=== PATIENT | male | born 1930 | race Caucasian/White ===

== ENCOUNTER 2021-02-21 18:14 | Inpatient (IN) | payer OTHER ==
--- NOTE | 2021-02-21 19:34 | RAD REPORT ---
EXAM DESCRIPTION: RAD - Chest Single View - 02/21/2021 7:17 pm CLINICAL HISTORY: hypotension Chest pain. COMPARISON: Chest Single View dated 01/27/2019; Chest Single View dated 01/26/2019; Chest Single View dated 01/23/2019No comparisons FINDINGS: Portable technique limits examination quality. Elevation of the right hemidiaphragm is seen without clear etiology seen. Mild interstitial pulmonary edema is likely present. The heart is mildly prominent size. Sternotomy wires present.
[2021-02-21] MEDS ORDERED: NA CHLORIDE 0.9% 1,000 ML ONE (19:59)
--- NOTE | 2021-02-21 20:05 | EDPHYS ---
Physician Documentation [facility] Name: Dudley Simmons Age: 89 yrs Sex: Male : 1930 Arrival Date: 02/21/2021 Time: 18:15 Bed 25 Private MD: KRYSTIAN Physician Ashwin Villalobos HPI: 02/21 18:30 This 89 yrs old Male presents to ER via EMS with complaints of syncope, rn hypotension. 18:30 The patient has experienced syncope. Onset: The symptoms/episode began/occurred just rn prior to arrival. Duration: This was a single episode. Context: the episode(s) was witnessed, by the half-way staff, occurred at a half-way or assisted living facility, occurred while the patient was sitting, Just prior to the episode the patient experienced no apparent symptoms. Associated injury: The patient did not suffer any apparent associated injury. Associated signs and symptoms: Pertinent positives: dizziness, lightheadedness, weakness, Pertinent negatives: abdominal pain, chest pain, headache. Current symptoms:. It is unknown whether or not the patient has had similar symptoms in the past. The patient has not recently seen a physician. EMS brought patient from half-way after syncopal episode. Was eating and slumped over in his chair. No preceding symptoms. Patient reports thinks has been eating and drinking okay but is very thirsty. Denies any current headache focal neurological problem, chest pain, shortness of breath, cough, abdominal pain, vomiting or diarrhea. States only time he has loose stools after eating breakfast sausage. Reports feels generalized weakness and lightheadedness.. Historical: - Allergies: 18:28 No Known Allergies; jl7 - Home Meds: 18:28 atorvastatin 80 mg oral tab 1 tab once daily [Active]; aspirin 81 mg Oral TbEC 1 tab jl7 once daily [Active]; carvedilol 25 mg oral tab 1 tab 2 times per day [Active]; ezetimibe 10 mg oral tab 1 tab once daily [Active]; furosemide 40 mg Oral tab 1 tab once daily [Active]; Zanaflex 4 mg Oral cap [Active]; - PMHx: 18:28 Hypertensive disorder; Atrial fibrillation; high cholesterol; CHF; jl7 - Immunization history:: Adult Immunizations up to date, Client reports receiving the 2nd dose of the Covid vaccine. - Social history:: Smoking status: Patient denies any tobacco usage or history of. - Family history:: not pertinent. - Hospitalizations: : No recent hospitalization is reported. ROS: 18:30 Constitutional: Negative for fever, chills, and weight loss, Eyes: Negative for injury, rn pain, redness, and discharge, Neck: Negative for injury, pain, and swelling, Cardiovascular: Negative for chest pain, palpitations, and edema, Respiratory: Negative for shortness of breath, cough, wheezing, and pleuritic chest pain, Abdomen/GI: Negative for abdominal pain, nausea, vomiting, and constipation, Back: Negative for injury and pain, : Negative for injury, bleeding, discharge, and swelling, MS/Extremity: Negative for injury and deformity, Skin: Negative for injury, rash, and discoloration, Neuro: Negative for headache, numbness, tingling, and seizure. 18:30 All other systems are negative. Exam: 18:30 Constitutional: This is a well developed, well nourished patient who is awake, alert, rn and in no acute distress. Head/Face: Normocephalic, atraumatic. Eyes: Periorbital areas with no swelling, redness, or edema. ENT: Dry mucous membranes Cardiovascular: Irregularly irregular rhythm. No pulse deficits. Regular rate Respiratory: Speaking full sentences, unlabored. No increased work of breathing, no retractions or nasal flaring. Abdomen/GI: Soft, non-tender Skin: Warm, dry MS/ Extremity: Pulses equal, no cyanosis Neuro: Awake and alert, GCS 15, oriented to person, place, time, and situation. Cranial nerves II-XII grossly intact. Motor strength 4/5 in all extremities. Sensory grossly intact. 18:36 ECG was reviewed by the Attending Physician. rn Vital Signs: 18:24 BP 66 / 44; Pulse 74; Resp 15; Temp 98.1; Pulse Ox 97% ; Pain 0/10; jl7 20:45 BP 102 / 64; Pulse 67; Resp 19; Temp 97.6; Pulse Ox 96% ; Weight 78.93 kg; Height 5 ft. wr 6 in. (167.64 cm); Pain 0/10; 16 04:00 BP 153 / 89; Pulse 94; Resp 21; Temp 98; Pulse Ox 96% ; wr 04:12 BP 156 / 74; Pulse 83; Resp 14; Temp 97.9; Pulse Ox 96% ; wr 09:08 BP 145 / 83 Sitting; Pulse 95; Resp 16; Pulse Ox 95% on R/A; 5 09:10 BP 145 / 97 Standing; Pulse 107; Resp 20; Pulse Ox 97% on R/A; 5 09:12 BP 140 / 91 Supine; Pulse 94; Resp 20; Pulse Ox 96% on R/A; 5 02/21 20:45 Body Mass Index 28.08 (78.93 kg, 167.64 cm) wr MDM: 02/21 18:22 Patient medically screened. rn 18:56 Transition of care: After a detail discussion of the patient's case, care is rn transferred to Ashwin Villalobos MD. 19:54 Differential Diagnosis: aortic aneurysm, cardiac arrhythmia, GI bleed, seizure, sepsis, brice vasovagal episode. Data reviewed: vital signs, nurses notes, lab test result(s), EKG, radiologic studies, CT scan, plain films. Data interpreted: athletic monitor: rate is 74 beats/min, rhythm is regular, Pulse oximetry: on room air is 97 %. Test interpretation: by ED physician or midlevel provider: ECG, plain radiologic studies. Counseling: I had a detailed discussion with the patient and/or guardian regarding: the historical points, exam findings, and any diagnostic results supporting the discharge/admit diagnosis, lab results, radiology results, the need for further work-up and treatment in the hospital. 02/21 18:29 Order name: CBC with Diff 02/21 18:29 Order name: Basic Metabolic Panel 02/21 18:29 Order name: Protime (+inr) 02/21 18:29 Order name: Ptt, Activated; Complete Time: 21:09 02/21 18:29 Order name: Urine Culture 02/21 18:29 Order name: Urine Microscopic Only 02/21 18:29 Order name: Blood Culture Adult (2) 02/21 18:29 Order name: Procalcitonin; Complete Time: 21:45 02/21 18:29 Order name: Lactate; Complete Time: 21:09 02/21 18:29 Order name: COVID-19 : Document "Date of Symptom Onset" if Symptomatic. 02/21 18:29 Order name: CBC with Automated Diff; Complete Time: 20:58 EDMS 02/21 18:29 Order name: Basic Metabolic Panel; Complete Time: 21:11 [facility] 02/21 18:29 Order name: Protime (+INR); Complete Time: 21:09 [facility] 02/21 18:48 Order name: BNP la1 02/21 18:29 Order name: XRAY Chest (1 view); Complete Time: 19:36 02/21 20:40 Order name: Liver (Hepatic) Function; Complete Time: 21:11 [facility] 02/21 20:40 Order name: Troponin I; Complete Time: 21:11 [facility] 02/21 20:41 Order name: NT PRO-BNP; Complete Time: 21:11 [facility] 02/21 23:44 Order name: SARS-COV-2 RT PCR EDWA 02/22 05:16 Order name: CBC with Automated Diff [facility] 02/22 05:37 Order name: Comprehensive Metabolic Panel [facility] 02/22 05:37 Order name: Troponin I [facility] 02/22 05:37 Order name: Lipid Profile [facility] 02/22 05:37 Order name: T4 Free [facility] 02/22 05:37 Order name: Magnesium [facility] 02/22 05:37 Order name: Thyroid Stimulating Hormone [facility] 02/22 13:18 Order name: Troponin I [facility] 02/21 18:29 Order name: IV Start; Complete Time: 20:38 02/21 18:29 Order name: Urine Dipstick-Ancillary (obtain specimen) 02/21 18:29 Order name: EKG; Complete Time: 18:30 02/21 18:29 Order name: EKG - Nurse/Tech; Complete Time: 18:38 02/21 19:54 Order name: CT Chest Abdomen Pelvis W/O Contrast; Complete Time: 21:01 [facility] 02/21 19:55 Order name: Head Brain Wo Cont CT; Complete Time: 20:59 bb EC:36 Rate is 75 beats/min. Rhythm is irregularly irregular. Right axis deviation noted. QRS rn is positive in lead aVF and negative in lead I. QRS interval is normal. QT interval is prolonged at 466 msec. No Q waves. T waves are Normal. No ST changes noted. Clinical impression: Atrial Fibrillation. Interpreted by me. Reviewed by me. Administered Medications: 20:00 Drug: NS 0.9% 1000 ml Route: IV; Rate: 1000 ml; Site: left forearm; wr 21:01 Drug: Pepcid (famotidine) 20 mg Route: IVP; Site: left forearm; 02/22 05:12 Drug: Tylenol 1000 mg Route: PO; wr Disposition Summary: 02/21/21 20:05 Hospitalization Ordered Hospitalization Status: Observation brice Provider: Camilo Reyes cha Condition: Fair brice Problem: new brice Symptoms: have improved brice Bed/Room Type: Standard brice Location: [facility] ER HOLD(02/22/21 01:16) tl1 Room Assignment: ERHOLD-(02/22/21 01:16) tl1 Diagnosis - Syncope Near brice - Hypotension, unspecified brice - Chronic atrial fibrillation brice - Unspecified kidney failure - insufficency brice Forms: - Medication Reconciliation Form brice - SBAR form brice Signatures: Dispatcher [employer] EDMS Ashwin Villalobos MD MD cha Nieto, Roman, MD MD rn Attema, Lee, RICK-C FIRE EXTINGUISHER REPAIRER INSPECTOR-Cla1 Rufina Girard RN RN tl1 Alan Carroll RN RN jl7 Roc Munguia Corrections: (The following items were deleted from the chart) 02/21 20:39 18:48 NT PRO-BNP ordered. EDWA EDMS 20:39 18:48 TROPONIN (EMERG DEPT USE ONLY)+C.LAB.BRZ ordered. EDWA EDMS 20:39 18:48 HEPATIC FUNCTION+C.LAB.BRZ ordered. EDWA EDWA 02/22 01:16 02/21 20:05 Telemetry/MedSurg (observation) [facility] 02/22 01:16 02/21 20:05 [facility]
--- NOTE | 2021-02-21 20:05 | ER ---
Nurse's Notes [facility] Name: Dudley Simmons Age: 89 yrs Sex: Male : 1930 Arrival Date: 02/21/2021 Time: 18:15 Bed 25 Private MD: Diagnosis: Syncope Near;Hypotension, unspecified;Chronic atrial fibrillation;Unspecified kidney failure-insufficency Presentation: 02/21 18:24 Chief complaint: EMS states: Sitting at the dinner table and had a syncopal episode, jl7 took him to his room and his initial BP was 100 systolic, stood him up and his BP was 66/44 and has not fully recovered. Pt A\T\Ox4. Coronavirus screen: Vaccine status: Patient reports receiving the 2nd dose of the covid vaccine. Belly At this time, the client does not indicate any symptoms associated with coronavirus-19. Ebola Screen: No symptoms or risks identified at this time. Initial Sepsis Screen: Does the patient meet any 2 criteria? No. Patient's initial sepsis screen is negative. Does the patient have a suspected source of infection? No. Patient's initial sepsis screen is negative. Risk Assessment: Do you want to hurt yourself or someone else? Patient reports no desire to harm self or others. Onset of symptoms was February 21, 2021. Care prior to arrival: Medication(s) given: Normal saline infusion, 1000 mL, IV initiated. 20 GA, in the left forearm, Glucose check: 116. 18:24 Method Of Arrival: EMS: [facility] 18:24 Acuity: JED 2 [facility] 18:24 Transition of care: Dimitir Smith [facility] Triage Assessment: 20:46 General: Appears in no apparent distress. Behavior is calm, cooperative. Pain: Denies wr pain. Historical: - Allergies: 18:28 No Known Allergies; jl7 - Home Meds: 18:28 atorvastatin 80 mg oral tab 1 tab once daily [Active]; aspirin 81 mg Oral TbEC 1 tab jl7 once daily [Active]; carvedilol 25 mg oral tab 1 tab 2 times per day [Active]; ezetimibe 10 mg oral tab 1 tab once daily [Active]; furosemide 40 mg Oral tab 1 tab once daily [Active]; Zanaflex 4 mg Oral cap [Active]; - PMHx: 18:28 Hypertensive disorder; Atrial fibrillation; high cholesterol; CHF; jl7 - Immunization history:: Adult Immunizations up to date, Client reports receiving the 2nd dose of the Covid vaccine. - Social history:: Smoking status: Patient denies any tobacco usage or history of. - Family history:: not pertinent. - Hospitalizations: : No recent hospitalization is reported. Screenin:48 Abuse screen: Denies. Nutritional screening: No deficits noted. wr 20:50 Tuberculosis screening: No symptoms or risk factors identified. Tuberculosis screening: wr No symptoms or risk factors identified. 20:50 Fall Risk None identified. Fall Risk Gait- Weak (10 pts.). wr Vital Signs: 18:24 BP 66 / 44; Pulse 74; Resp 15; Temp 98.1; Pulse Ox 97% ; Pain 0/10; jl7 20:45 BP 102 / 64; Pulse 67; Resp 19; Temp 97.6; Pulse Ox 96% ; Weight 78.93 kg; Height 5 ft. wr 6 in. (167.64 cm); Pain 0/10; 02/22 04:00 BP 153 / 89; Pulse 94; Resp 21; Temp 98; Pulse Ox 96% ; wr 04:12 BP 156 / 74; Pulse 83; Resp 14; Temp 97.9; Pulse Ox 96% ; wr 09:08 BP 145 / 83 Sitting; Pulse 95; Resp 16; Pulse Ox 95% on R/A; 5 09:10 BP 145 / 97 Standing; Pulse 107; Resp 20; Pulse Ox 97% on R/A; 5 09:12 BP 140 / 91 Supine; Pulse 94; Resp 20; Pulse Ox 96% on R/A; 5 09/15 20:45 Body Mass Index 28.08 (78.93 kg, 167.64 cm) wr ED Course: 02/21 18:15 Patient arrived in ED. ds1 18:22 Guillermo Armstrong MD is Attending Physician. rn 18:28 Triage completed. jl7 18:28 Arm band placed on right wrist. jl7 19:13 Attending Physician role handed off by Guillermo Armstrong MD brice 19:13 Ashwin Villalobos MD is Attending Physician. brice 19:17 XRAY Chest (1 view) In Process Unspecified. EDMS 20:04 Camilo Reyes DO is Hospitalizing Provider. brice 20:43 CT Chest Abdomen Pelvis W/O Contrast In Process Unspecified. EDMS 20:43 Head Brain Wo Cont CT In Process Unspecified. EDMS 20:51 Inserted saline lock:. 02/22 04:10 Patient has correct armband on for positive identification. 08:18 Margie Myrick is Primary Nurse. formerly [facility] 09: Warm blanket given. Pillow given. bus driver/monitor on. Pulse ox on. NIBP on. mh5 Administered Medications: 02/21 20:00 Drug: NS 0.9% 1000 ml Route: IV; Rate: 1000 ml; Site: left forearm; 21:01 Drug: Pepcid (famotidine) 20 mg Route: IVP; Site: left forearm; 02/22 05:12 Drug: Tylenol 1000 mg Route: PO; Outcome: 02/21 20:05 Decision to Hospitalize by Provider. [facility] 02/22 04:10 Condition: stable 02/23 10:24 Patient left the ED. iw Signatures: Dispatcher [employer] Ashwin Lloyd MD MD cha Sanford, Demi ds1 Stella North, RN RN iw Guillermo Armstrong MD MD rn Martinez, Maria 5 Alan Carroll RN RN Margie Calixto formerly [facility] Roc Munguia
[2021-02-21 20:53] LABS: Absolute Lymphocytes (CBC) 1.9 K/uL (0.7-4.9); Basophils % 0.8 % (0-1.3); Lymphocytes % 26.6 % (15.3-44.8); MPV 9.5 fL (7.6-11.3); RBC Red Blood Cell Count 3.64 M/uL (4.33-5.43)
--- NOTE | 2021-02-21 20:57 | RAD REPORT ---
EXAM DESCRIPTION: CT - Head Brain Wo Cont - 02/21/2021 8:43 pm CLINICAL HISTORY: SYNCOPE Headache drowsiness COMPARISON: No comparisons TECHNIQUE: All CT scans are performed using dose optimization technique as appropriate and may inclu de automated exposure control or mA/KV adjustment according to patient size. FINDINGS: No intracranial hemorrhage, hydrocephalus or extra-axial fluid collection.Mild brain atrop hy.No areas of brain edema or evidence of midline shift. The paranasal sinuses and mastoids are clear. The calvarium is intact. IMPRESSION: No acute intracranial abnormality.
--- NOTE | 2021-02-21 21:00 | RAD REPORT ---
EXAM DESCRIPTION: CT - Chest Abd Pelvis Wo Con - 02/21/2021 8:43 pm CLINICAL HISTORY: Chest and abdomen pain. Chest pain;Abdominal distention COMPARISON: No comparisons TECHNIQUE: Limited noncontrast study is submitted. All CT scans are performed using dose optimization technique as appropriate and may include automated exposure control or mA/KV adjustment according to patient size. FINDINGS: Atelectasis is seen in the right lung base with elevation of the right hemidiaphragm.No pl eural or pericardial effusion.No intrathoracic adenopathy. The liver, spleen, pancreas, adrenal glands and kidneys are within normal limits. Cholecystectomy cli ps. No bowel obstruction, free air, free fluid or abscess. Normal appendix. Moderate sigmoid diverticulos is coli without diverticulitis. No pathologic lymphadenopathy in the abdomen or pelvis. Fat containin g inguinal hernias bilaterally, larger on the left. Significant degenerative change right shoulder. Mild lumbar degenerative changes. IMPRESSION: No acute abnormality is detected.
[2021-02-21 21:02] LABS: Protime INR 1.07
[2021-02-21] MEDS ORDERED: FAMOTIDINE 20 MG/2 ML VIAL IV ONE (21:07)
[2021-02-21 21:11] LABS: Albumin 3.9 g/dL (3.4-5.0); Bilirubin Direct 0.2 mg/dL (0-0.2); Bilirubin Total 0.5 mg/dL (0.2-1.0); Protein, Total 7.2 g/dL (6.4-8.2); Troponin I 0.03 ng/mL (0.0-0.045)
--- NOTE | 2021-02-21 21:47 | P.HP ---
Certification for Inpatient Patient admitted to: Observation With expected LOS: <2 Midnights Patient will require the following post-hospital care: None Practitioner: I am a practitioner with admitting privileges, knowledge of patient current condition, hospital course, and medical plan of care. Services: Services provided to patient in accordance with Admission requirements found in Title 42 Section 412.3 of the Code of Federal Regulations Patient History Date of Service: 02/21/21 Primary Care Provider: [facility] doctor Reason for admission: Orthostatic hypotension History of Present Illness: 89-year-old male with history of atrial fibrillation, hypertension, hyperlipidemia, CAD status post CABG, CHF presents emergency department for hypotension, orthostatic. Patient states that [facility], reports that he was eating dinner this evening and after he was done walked in his room and was not feeling well, he reports that the staff came to his room and told him that he had passed out during dinner. Patient reports that he remembers all of dinner and did not lose consciousness or pass out but that his blood pressure had been running low. Patient was transferred by EMS to hospital and he was orthostatic positive. Labs are significant for hemoglobin 11.3 hematocrit 33 creatinine 1.35 GFR 50 glucose 111 BUN [address] head negative for acute findings chest x-ray demonstrated elevated right hemidiaphragm CT chest abdomen pelvis without contrast demonstrated right-sided atelectasis. Blood pressure has improved after fluids, ED provider is to admit under observation for hypotension, renal insufficiency, orthostatic hypotension. - Past Medical/Surgical History -: CHFunknown EF -: Atrial fibrillation unknown anticoagulation -: Hyperlipidemia -: Hypertension -: Hernia repair -: CABG three-vessel 2006 -: Cholecystectomy Psychosocial/ Personal History: Patient is a resident at assisted living facility - Family History Father -: Lung disease - Social History Smoking Status: Former smoker Alcohol use: No CD- Drugs: No Caffeine use: Yes Place of Residence: Home Review of Systems Unremarkable Physical Examination - Physical Exam General: Alert, In no apparent distress HEENT: Atraumatic, PERRLA, Mucous membr. moist/pink, EOMI, Sclerae nonicteric Neck: Supple, 2+ carotid pulse no bruit, No LAD, Without JVD or thyroid abnormality Respiratory: Clear to auscultation bilaterally, Normal air movement Cardiovascular: Regular rate/rhythm, Normal S1 S2 Gastrointestinal: Normal bowel sounds, No tenderness Musculoskeletal: No tenderness Integumentary: No rashes Neurological: Normal gait, Normal speech, Normal strength at 5/5 x4 extr, Normal tone, Normal affect Lymphatics: No axilla or inguinal lymphadenopathy - Studies Laboratory Data (last 24 hrs) 02/21/21 20:15: PT 12.3, INR 1.07, APTT 29.0 02/21/21 20:15: Sodium 142, Potassium 4.0, BUN 27 H, Creatinine 1.35 H, Glucose 111 H, Total Bilirubin 0.5, AST 35, ALT 52, Alkaline Phosphatase 76, Troponin I 0.03 02/21/21 20:15: WBC 7.00, Hgb 11.3 L, Hct 33.0 L, Plt Count 145 L 02/21/21 18:48: Total Bilirubin Cancelled, AST Cancelled, ALT Cancelled, Alkaline Phosphatase Cancelled Assessment and Plan - Plan Assessment: Orthostatic hypotension, renal sufficiency likely secondary to dehydration Chronic CHFunknown EF Atrial fibrillation unknown if on chronic anticoagulation therapy Hypertension Hyperlipidemia Plan: Orthostatic hypotension, renal sufficiency likely secondary to dehydration: Patient received IV fluid bolus in the ER blood pressure has improved, will provide patient IV fluids overnight recheck chemistry and orthostatic vital signs in the morning. Chronic CHFunknown EF: Obtain, verify and resume home medications as appr opriate. Patient reports that he previously used to take a diuretic but has not for a while now, patient does not know his home medications. Atrial fibrillation unknown if on chronic anticoagulation therapy: Patient reports he knows he takes a daily aspirin but is unsure of the home medications including anticoagulation therapy will need to obtain from assisted. Hypertension: Hold blood pressure medication at this time given patient's low blood pressure. Restart as appropriate. Hyperlipidemia: Continue statin therapy. DVT PPX: Lovenox Code status: Full Discharge Plan: Home Plan to discharge in: 24 Hours - Advance Directives Does patient have a Living Will: No Does patient have a Durable POA for Healthcare: No - Code Status/Comfort Care Code Status Assessed: Yes (Full code) Critical Care: No Time Spent Managing Pts Care (In Minutes): 55
[2021-02-22] MEDS ORDERED: ACETAMINOPHEN 500 MG TAB PO PRN (00:57)
[2021-02-22] MEDS ORDERED: ONDANSETRON 4 MG/2 ML VIAL IV PRN (00:57)
[2021-02-22] MEDS: NA CHLORIDE 0.9% 1,000 ML IV SCH ×2 (00:57→13:51)
[2021-02-22 05:07] LABS: Absolute Lymphocytes (CBC) 2.1 K/uL (0.7-4.9); Basophils % 0.9 % (0-1.3); Hematocrit 33.7 % (39.6-49.0); Lymphocytes % 28.6 % (15.3-44.8); MPV 9.1 fL (7.6-11.3); RBC Red Blood Cell Count 3.72 M/uL (4.33-5.43)
[2021-02-22] MEDS ORDERED: ACETAMINOPHEN 500 MG TAB ONE ×2 (05:15→15:25)
[2021-02-22] MEDS ORDERED: NA CHLORIDE 0.9% 1,000 ML ONE ×2 (05:26→18:36)
[2021-02-22 05:27] LABS: Albumin 3.8 g/dL (3.4-5.0); Bilirubin Total 0.7 mg/dL (0.2-1.0); Thyroid Stimulating Hormone 1.31 uIU/mL (0.360-3.740); Troponin I 0.05 ng/mL (0.0-0.045)
[2021-02-22 05:37] LABS: Magnesium 2.1 mg/dL (1.8-2.4); Potassium 3.8 mmol/L (3.5-5.1)
--- NOTE | 2021-02-22 06:29 | P.PN ---
Subjective Date of Service: 02/22/21 Primary Care Provider: custodial doctor Chief Complaint: Orthostatic hypotension Subjective: Improving, Doing well Physical Examination - Studies Laboratory Data (last 24 hrs) 02/21/21 20:15: PT 12.3, INR 1.07, APTT 29.0 02/21/21 20:15: Sodium 142, Potassium 4.0, BUN 27 H, Creatinine 1.35 H, Glucose 111 H, Total Bilirubin 0.5, AST 35, ALT 52, Alkaline Phosphatase 76, Troponin I 0.03 02/21/21 20:15: WBC 7.00, Hgb 11.3 L, Hct 33.0 L, Plt Count 145 L 02/21/21 18:48: Total Bilirubin Cancelled, AST Cancelled, ALT Cancelled, Alkaline Phosphatase Cancelled Assessment & Plan Discharge Plan: [facility] Plan to discharge in: 24 Hours Physician Review Additional Text: COVID: negative CT head: COMPARISON: No comparisons TECHNIQUE: All CT scans are performed using dose optimization technique as appropriate and may include automated exposure control or mA/KV adjustment according to patient size. FINDINGS: No intracranial hemorrhage, hydrocephalus or extra-axial fluid collection.Mild brain atrophy.No areas of brain edema or evidence of midline shift. The paranasal sinuses and mastoids are clear. The calvarium is intact. IMPRESSION: No acute intracranial abnormality. CT Scan: COMPARISON: No comparisons TECHNIQUE: Limited noncontrast study is submitted. All CT scans are performed using dose optimization technique as appropriate and may include automated exposure control or mA/KV adjustment according to patient size. FINDINGS: Atelectasis is seen in the right lung base with elevation of the right hemidiaphragm.No pleural or pericardial effusion.No intrathoracic adenopathy. The liver, spleen, pancreas, adrenal glands and kidneys are within normal limits. Cholecystectomy clips. No bowel obstruction, free air, free fluid or abscess. Normal appendix. Moderate sigmoid diverticulosis coli without diverticulitis. No pathologic lymphadenopathy in the abdomen or pelvis. Fat containing inguinal hernias bilaterally, larger on the left. Significant degenerative change right shoulder. Mild lumbar degenerative changes. IMPRESSION: No acute abnormality is detected. Physical exam: General: Alert, In no apparent distress HEENT: Atraumatic, PERRLA, Mucous membr. moist/pink, EOMI, Sclerae nonicteric Neck: Supple, 2+ carotid pulse no bruit, No LAD, Without JVD or thyroid abno rmality Respiratory: Clear to auscultation bilaterally, Normal air movement Cardiovascular: Regular rate/rhythm, Normal S1 S2 Gastrointestinal: Normal bowel sounds, No tenderness Musculoskeletal: No tenderness Integumentary: No rashes Neurological: Normal gait, Normal speech, Normal strength at 5/5 x4 extr, Normal tone, Normal affect Lymphatics: No axilla or inguinal lymphadenopathy Impression: Orthostatic hypotension, renal sufficiency likely secondary to dehydration Chronic CHFunknown EF Atrial fibrillation unknown if on chronic anticoagulation therapy Hypertension Hyperlipidemia Plan: Orthostatic hypotension, renal sufficiency likely secondary to dehydration: Hydration improved with IV fluids. Continue with hydration. Blood pressures elevated. Need to obtain and restart home medication. Will monitor blood pressure closely. Will check orthostatics. Ambulate with physical therapy. Likely home tomorrow. Chronic CHFunknown EF: Obtain and verify home medication. Atrial fibrillation unknown if on chronic anticoagulation therapy: Obtain and verify home medication. Hypertension: Blood pressure is now elevated. Need to restart home medication. Hyperlipidemia: Continue statin therapy. DVT PPX: Lovenox Code status: Full Advanced care planning: Back to assisted living facility Time Spent Managing Pts Care (In Minutes): 55
[2021-02-22] MEDS ORDERED: ENOXAPARIN 40 MG/0.4 ML SQ SCH (09:00)
[2021-02-22] MEDS ORDERED: ASPIRIN EC 81 MG TAB PO SCH (09:00)
[2021-02-22] MEDS ORDERED: ENOXAPARIN 40 MG/0.4 ML SQ ONE (09:57)
[2021-02-22] MEDS ORDERED: ASPIRIN EC 81 MG TAB PO ONE (09:57)
[2021-02-22] MEDS ORDERED: PNEUMOCOCCAL VACCINE 0.5 ML IMVAC ONE ×2 (11:00→15:22)
[2021-02-22] MEDS ORDERED: carvediloL 6.25 MG TAB ONE (13:54)
[2021-02-22] MEDS: carvediloL 25 MG TAB PO SCH ×2 (14:00→18:00)
[2021-02-22] MEDS ORDERED: HYDRALAZINE HCL 20 MG/ML VIAL ONE (23:40)
[2021-02-22] MEDS ORDERED: HYDRALAZINE HCL 20 MG/ML VIAL IV ONE (23:46)
[2021-02-23] MEDS ORDERED: ACETAMINOPHEN 500 MG TAB ONE (00:58)
[2021-02-23] MEDS: NA CHLORIDE 0.9% 1,000 ML IV SCH (03:37)
[2021-02-23 04:56] VITALS: BP 127/67; TEMP 98.4
[2021-02-23] MEDS: carvediloL 25 MG TAB PO SCH (06:00)
[2021-02-23] MEDS ORDERED: NA CHLORIDE 0.9% 1,000 ML ONE (06:17)
[2021-02-23 06:23] VITALS: BMI 28.3
--- NOTE | 2021-02-23 06:37 | P.DS ---
Admission Date: 02/21/21 Discharge Date: 02/23/21 Primary Care Provider: prison doctor Disposition: ROUTINE DISCHARGE Discharge Condition: GOOD Reason for Admission: Orthostatic hypotension Consultations: none Procedures: COVID: negative CT head: COMPARISON: No comparisons TECHNIQUE: All CT scans are performed using dose optimization technique as appropriate and may include automated exposure control or mA/KV adjustment according to patient size. FINDINGS: No intracranial hemorrhage, hydrocephalus or extra-axial fluid collection.Mild brain atrophy.No areas of brain edema or evidence of midline shift. The paranasal sinuses and mastoids are clear. The calvarium is intact. IMPRESSION: No acute intracranial abnormality. CT Scan: COMPARISON: No comparisons TECHNIQUE: Limited noncontrast study is submitted. All CT scans are performed using dose optimization technique as appropriate and may include automated exposure control or mA/KV adjustment according to patient size. FINDINGS: Atelectasis is seen in the right lung base with elevation of the right hemidiaphragm.No pleural or pericardial effusion.No intrathoracic adenopathy. The liver, spleen, pancreas, adrenal glands and kidneys are within normal limits. Cholecystectomy clips. No bowel obstruction, free air, free fluid or abscess. Normal appendix. Moderate sigmoid diverticulosis coli without diverticulitis. No pathologic lymphadenopathy in the abdomen or pelvis. Fat containing inguinal hernias bilaterally, larger on the left. Significant degenerative change right shoulder. Mild lumbar degenerative changes. IMPRESSION: No acute abnormality is detected. Medical Problem List: Orthostatic hypotension, renal sufficiency likely secondary to dehydration Chronic CHFunknown EF Atrial fibrillation unknown if on chronic anticoagulation therapy Hypertension Hyperlipidemia Brief History of Present Illness: 89-year-old male with history of atrial fibrillation, hypertension, hyperlipidemia, CAD status post CABG, CHF presents emergency department for hypotension, orthostatic. Patient states that [facility] assisted [facility], reports that he was eating dinner this evening and after he was done walked in his room and was not feeling well, he reports that the staff came to his room and told him that he had passed out during dinner. Patient reports that he remembers all of dinner and did not lose consciousness or pass out but that his blood pressure had been running low. Patient was transferred by EMS to hospital and he was orthostatic positive. Labs are significant for hemoglobin 11.3 hematocrit 33 creatinine 1.35 GFR 50 glucose 111 BUN [address] head negative for acute findings chest x-ray demonstrated elevated right hemidiaphragm CT chest abdomen pelvis without contrast demonstrated right-sided atelectasis. Blood pressure improved with IV fluid hydration. Patient was admitted for further evaluation and treatment. Hospital Course: Patient presented with orthostatic hypotension, renal sufficiency likely from dehydration. Patient received IV fluids with improvement. Blood pressure stable. Renal function back to baseline. Patient with underlying history of chronic CHF, atrial fibrillation not on chronic anticoagulation therapy, hypertension and hyperlipidemia. His Lasix medication was held during the hospitalization. Patient has significantly improved. Patient on room air. Blood pressure stable on current medication. At discharge the patient may continue with the 1500 cc/day fluid restriction and low-salt diet for his CHF. Recommend to monitor his weight daily. At discharge recommend to hold Lasix 40 mg daily unless he starts noticing increasing edema to the lower extremity and increasing in his weight. Further adjustment in medication may be addressed by his PCP. Patient will return back to the assisted living facility. Patient plans to establish care locally with a PCPDr. Lowe. CHF education provided. Patient may continue with his potassium supplementation if he takes his Lasix. Patient with atrial fibrillation. Patient in sinus rhythm. Patient not on chronic anticoagulation therapy. At discharge patient may continue with carvedilol 25 mg 1 pill twice daily and aspirin 81 mg daily. Recommend follow- up with cardiology in the local area to follow-up this hospitalization. Patient with hypertension. As mentioned above pressure was low upon admission this is likely from dehydration. Patient will continue with above recommendations on holding Lasix for now unless he starts to increase his weight and notices increasing edema. He should continue with his regular blood pressure medicationcarvedilol 25 mg 1 pill twice daily. Recommend to monitor his blood pressure daily. Recommend to maintain his blood pressure less than 130/80. Further adjustment can be done by his PCP. Patient with hyperlipidemia. At discharge patient will continue with his medications include Lipitor 80 mg daily and Zetia 10 mg daily. Vital Signs/Physical Exam: Temp Pulse Resp BP Pulse Ox 98.4 F 108 H 20 127/67 96 02/23/21 04:00 02/23/21 04:00 02/23/21 04:00 02/23/21 04:00 02/23/21 04:00 General: Alert, In no apparent distress, Oriented x3, Cooperative HEENT: Atraumatic Neck: Supple Respiratory: Clear to auscultation bilaterally, Normal air movement Cardiovascular: Normal pulses, Regular rate/rhythm Gastrointestinal: Normal bowel sounds, No ascites, No tenderness, No masses, No rebound, No guarding Musculoskeletal: No erythema, No tenderness, No warmth Integumentary: No tenderness/swelling Neurological: Normal speech, Normal strength at 5/5 x4 extr, Normal tone Laboratory Data at Discharge: WBC 7.20 K/uL (4.3-10.9) 02/22/21 04:30 Hgb 11.6 g/dL (13.6-17.9) L 02/22/21 04:30 Hct 33.7 % (39.6-49.0) L 02/22/21 04:30 Plt Count 150 K/uL (152-406) L 02/22/21 04:30 PT 12.3 SECONDS (9.5-12.5) 02/21/21 20:15 INR 1.07 02/21/21 20:15 APTT 29.0 SECONDS (24.3-36.9) 02/21/21 20:15 Sodium 143 mmol/L (136-145) 02/22/21 04:30 Potassium 3.8 mmol/L (3.5-5.1) 02/22/21 04:30 BUN 20 mg/dL (7-18) H 02/22/21 04:30 Creatinine 0.99 mg/dL (0.55-1.3) 02/22/21 04:30 Glucose 85 mg/dL (74-106) 02/22/21 04:30 Magnesium 2.1 mg/dL (1.8-2.4) 02/22/21 04:30 Total Bilirubin 0.7 mg/dL (0.2-1.0) 02/22/21 04:30 AST 38 U/L (15-37) H 02/22/21 04:30 ALT 52 U/L (12-78) 02/22/21 04:30 Alkaline Phosphatase 70 U/L (45-117) 02/22/21 04:30 Troponin I 0.08 ng/mL (0.0-0.045) H 02/22/21 12:53 Triglycerides 56 mg/dL (<150) 02/22/21 04:30 Cholesterol 92 mg/dL (<200) 02/22/21 04:30 HDL Cholesterol 61 mg/dL (40-60) H 02/22/21 04:30 Cholesterol/HDL Ratio 1.51 02/22/21 04:30 Home Medications: Acetaminophen [Acetaminophen Extra Strength] 1,000 mg PO BID PRN 02/22/21 Aspirin [Aspirin EC] 81 mg PO DAILY 02/22/21 Atorvastatin Calcium [Lipitor] 80 mg PO BEDTIME 02/22/21 Carvedilol [Coreg] 25 mg PO BID 02/22/21 Docusate Sodium [Dok] 100 mg PO DAILY PRN 02/22/21 Ezetimibe 10 mg PO DAILY 02/22/21 Furosemide 40 mg PO DAILY 02/22/21 Magnesium Hydroxide [Milk of Magnesia] 30 ml PO DAILY PRN 02/22/21 Potassium Chloride 20 meq PO DAILY 02/22/21 Triamcinolone 0.1% Oint [Kenalog 0.1% Ointment*] 1 applic TOP DAILY 02/22/21 Physician Discharge Instructions: Patient presented with orthostatic hypotension, renal sufficiency likely from dehydration. Patient received IV fluids with improvement. Blood pressure stable. Renal function back to baseline. Patient with underlying history of chronic CHF, atrial fibrillation not on chronic anticoagulation therapy, hypertension and hyperlipidemia. His Lasix medication was held during the hospitalization. Patient has significantly improved. Patient on room air. Blood pressure stable on current medication. At discharge the patient may continue with the 1500 cc/day fluid restriction and low-salt diet for his CHF. Recommend to monitor his weight daily. At discharge recommend to hold Lasix 40 mg daily unless he starts noticing increasing edema to the lower extremity and increasing in his weight. Further adjustment in medication may be addressed by his PCP. Patient will return back to the assisted living facility. Patient plans to establish care locally with a PCPDr. Lowe. CHF education provided. Patient may continue with his potassium supplementation if he takes his Lasix. Patient with atrial fibrillation. Patient in sinus rhythm. Patient not on chronic anticoagulation therapy. At discharge patient may continue with carvedilol 25 mg 1 pill twice daily and aspirin 81 mg daily. Recommend follow- up with cardiology in the local area to follow-up this hospitalization. Patient with hypertension. As mentioned above pressure was low upon admission this is likely from dehydration. Patient will continue with above recommendations on holding Lasix for now unless he starts to increase his weight and notices increasing edema. He should continue with his regular blood pressure medicationcarvedilol 25 mg 1 pill twice daily. Recommend to monitor his blood pressure daily. Recommend to maintain his blood pressure less than 130/80. Further adjustment can be done by his PCP. Patient with hyperlipidemia. At discharge patient will continue with his medications include Lipitor 80 mg daily and Zetia 10 mg daily. Diet: AHA Activity: Ad hesham Followup: Rafael Calvo MD [Primary Care Provider] - Time spent managing pt's care (in minutes): 55
[2021-02-23] MEDS ORDERED: ASPIRIN EC 81 MG TAB PO ONE (09:31)
[2021-02-23] MEDS ORDERED: ENOXAPARIN 40 MG/0.4 ML SQ ONE (09:31)
[2021-02-23 10:47] VITALS: O2SAT 96
== END 2021-02-23 13:57 | disposition home or self-care (01) | DRG 312 ==
LOC: ER 18:14 → ERHOLD 21:38 → OBSVTOIN 02-23 09:25
PROVIDERS: ADMIT Family Medicine; ATTEND Family Medicine
DX: I95.1 Orthostatic hypotension (principal); E86.0 Dehydration; N28.9 Disorder of kidney and ureter, unspecified; I11.0 Hypertensive heart disease with heart failure; I50.9 Heart failure, unspecified; E78.5 Hyperlipidemia, unspecified; I48.91 Unspecified atrial fibrillation; I25.10 Atherosclerotic heart disease of native coronary artery without angina pectoris; Z95.1 Presence of aortocoronary bypass graft; Z20.822 Contact with and (suspected) exposure to COVID-19
CPT/HCPCS: 36415; 70450; 71045; 71250; 74176; 80048; 80053; 80061; 80076; 83605; 83735; 83880; 84145; 84439; 84443; 84484; 85025; 85610; 85730; 87040; 90732; 93005; 96374; 97161; 99284; G0378; J0360; J1650; J7030; U0003

== ENCOUNTER 2021-10-11 15:00 | Observation (INO) | payer OTHER ==
--- OUTSIDE RECORDS SUMMARY | 2021-10-11 15:04 | XMS REPORT | Continuity of Care Document ---
:1930 Author Organization [facility] t Address [facility] [place] [address] Care Team Providers Name Role Phone DR HARRISON Primary Care Physician ASHLEY Attending Clinician Unavailable Savannah TERRY Attending Clinician Unavailable HARRISON Attending Clinician Unavailable ASHLEY Admitting Clinician Unavailable Savannah TERRY Admitting Clinician Unavailable MASTERFORSavannah Admitting Clinician Unavailable Payers Payer Name Policy Type Policy Number Effective Date Expiration Date S ource $15 MA [id number] 2020 00:00:00 Problems Condition Condition Condition Status Onset Resolution Last Treating Co mments Source Name Details Category Date Date Treatment Clinician Date Atrial Atrial Problem Active [facility] fibr[facility] fibrillati 02-06 Marixa kes - on on 00:00: Memoria 00 l (LUF/LI V/SA) Cellulitis Cellulitis Problem Active [facility] of right of right 02-06 [facility] - lower limb lower limb 00:00: Me moria 00 l (LUF/LI V/SA) Allergies, Adverse Reactions, Alerts Allergy Allergy Status Severity Reaction(s) Onset Inactive Treating Comm ents Source Name Type Date Date Clinician No Known DA Active Unknown [facility]ie Memoria s l (LUF/LI V/SA) Social History Social Habit Start Date Stop Date Quantity Comments Source No Social History Information Available Smoking Status Start Date Stop Date Source Never smoker [facility] ([facility]/ANKIT/SA) Tobacco smoking consumption unknown Medications Ordered Filled Start Stop Current Ordering Indication Dosage Frequency Signature Comments Components Source Medication Medication Date Date Medication? Clinician (SIG) Name Name metoprolol metoprolol No 50 3xD BY MOUTH [facility] tartrate 50 tartrate 50 02-12 TWICE A [facility] - MG Oral MG Oral 00:00: DAY Memoria Tablet Tablet 00 (DOCUMENT l B/P BETA (LUF/LI RHEA V/SA) DOCUMENT B/P BETA BLOCKERDOC UMENT B/P BETA RHEA) ciprofloxac ciprofloxac No 500 3xD BY MOUTH [facility] in 500 MG in 500 MG 02-10 TWICE A Marixa kes - Oral Tablet Oral Tablet 00:00: DAY (GIVE Memoria 00 ONE HOUR l BEFORE OR (LUF/LI TWO HOURS V/SA) AFTER A MEAL DO NOT GIVE WITH DAIRY PRODUCTS) silver silver No [address] [facility] sulfadiazin sulfadiazin 02-10 AFFECTED [facility] - e 10 MG/ML e 10 MG/ML 00:00: AREA EVERY Memoria Topical Topical 00 DAY l Cream Cream NEEDED as (LUF/LI needed. V/SA) (DISPOSE OF IN BLACK CONTAINER APPLY A 1.5 MM THICKNESS) LACTOBACILL LACTOBACILL Yes [address] [facility] US TABLET US TABLET 02-10 [facility] - 00:00: Memoria l (LUF/LI V/SA) LACTOBACILL LACTOBACILL Yes 1 Q8.00W BY MOUTH [facility] US TABLET US TABLET 02-10 THREE (3) [facility] - 00:00: TIMES A Memoria 00 DAY l (LUF/LI V/SA) furosemide furosemide Yes [address] 40 MG Oral 40 MG Oral 02-08 Dionicio es - Tablet Tablet 00:00: Memoria l (LUF/LI V/SA) furosemide furosemide Yes [address] [facility] 40 MG Oral 40 MG Oral 02-08 ONCE A DAY [facility] - Tablet Tablet 00:00: (ACUDOSE Memor ia 00 MED) l (LUF/LI V/SA) ACETAMINOPH ACETAMINOPH Yes [address] [facility] EN TABLET EN TABLET 02-06 [facility] - 00:00: Memoria 00 l (LUF/LI V/SA) DOCUSATE DOCUSATE Yes [facility] SODIUM SODIUM 02-06 [facility] - CAPSULE CAPSULE 00:00: Memoria 00 l (LUF/LI V/SA) magnesium magnesium Yes [address] [facility] hydroxide hydroxide 8-31 [facility] - 80 MG/ML 80 MG/ML 00:00: Memor ia Oral Oral 00 l Suspension Suspension (MARIXA F/LI V/SA) ACETAMINOPH ACETAMINOPH Yes 650 12xD BY MOUTH [facility] EN TABLET EN TABLET 8-31 EVERY 4 Marixa kes - 00:00: HOURS Memoria 00 NEEDED as l needed. (LUF/LI (ADULT V/SA) MAXIMUM ACETAMINOP HEN DOSE PER 24 HOURS = 4 GRAMS PAIN LEVEL 1-2 OR TREMP >100.5F) DOCUSATE DOCUSATE Yes [address] [facility] SODIUM SODIUM 8-31 EVERY DAY [facility] - CAPSULE CAPSULE 00:00: NEEDED Me moria 00 as needed. l (FOR (LUF/LI CONSTIPATI V/SA) ON) magnesium magnesium Yes 30 Q28.00D BY MOUTH [facility] hydroxide hydroxide 8-31 EVERY Luke s - 80 MG/ML 80 MG/ML 00:00: NIGHT AT M emoria Oral Oral 00 BEDTIME l Suspension Suspension NEEDED as (LUF/LI needed. V/SA) (AVOID WITHIN 2 HRS OF ORAL QUINOLONES FOR CONSTIPATI ON ACUDOSE MED) silver silver Yes [address] [facility] sulfadiazin sulfadiazin AFFECTED [facility] - e 10 MG/ML e 10 MG/ML AREA ONCE Memoria Topical Topical A DAY l Cream Cream (APPLY A (LUF/LI 1.5 MM V/SA) THICKNESS TO RIGHT LEG WITH NONADESIVE DRESSINGS) aspirin aspirin Yes 81mg 1xD [facility] (LUF/LI V/SA) carvedilol carvedilol Yes 25mg 2xD [facility] 25 MG Oral 25 MG Oral Dionicio es - Tablet Tablet Memoria l (LUF/LI V/SA) cefuroxime cefuroxime Yes 500mg 2xD [facility] 500 MG Oral 500 MG Oral L ukes - Tablet Tablet Memoria l (LUF/LI V/SA) diphenhydra diphenhydra Yes 25mg Q5.00H [facility] mine mine [facility] - [facility] l (LUF/LI V/SA) ezetimibe ezetimibe Yes 10mg 1xD [facility] 10 MG Oral 10 MG Oral Dionicio es - Tablet Tablet Memoria l (LUF/LI V/SA) rosuvastati rosuvastati Yes [address] [facility] n 40 mg n 40 mg [facility] - tablet tablet Memoria l (LUF/LI V/SA) silver silver Yes [address] [facility] sulfadiazin sulfadiazin L ukes - e 10 MG/ML e 10 MG/ML Mem oria Topical Topical l Cream Cream (LUF/LI V/SA) aspirin aspirin Yes 81mg 1xD orally [facility] daily [facility] - [facility] (LUF/LI V/SA) carvedilol carvedilol Yes 25mg 2xD orally [facility] 25 MG Oral 25 MG Oral every 12 [facility] - Tablet Tablet hours Memoria (must l administer (LUF/LI with a V/SA) meal/food) cefuroxime cefuroxime Yes 500mg 2xD orally [address] [facility] 500 MG Oral 500 MG Oral times per [facility] - Tablet Tablet day Memoria l (LUF/LI V/SA) diphenhydra diphenhydra Yes 25mg Q5.00H orally [facility] mine mine every 4 to [facility] - 6 hours as Memoria needed. l (LUF/LI V/SA) ezetimibe ezetimibe Yes 10mg 1xD orally [facility] 10 MG Oral 10 MG Oral daily Marixa kes - Tablet Tablet Memoria l (LUF/LI V/SA) rosuvastati rosuvastati Yes [address]2.[address] BY MOUTH [facility] n 40 mg n 40 mg EVERY [facility] - tablet tablet NIGHT AT Memoria BED TIME l (LUF/LI V/SA) No No No Medication Medication Information Informatio Available n Available No No No Medication Medication Information Informatio Available n Available Vital Signs Vital Name Observation Time Observation Value Comments Source Weight 2020-08-03 23:00:00 77.5 KG Weight 2020-08-03 04:00:00 77.9 KG Weight 2020-08-02 00:00:00 78.2 KG Weight 2020-08-01 04:30:00 79 KG Weight 2020-07-31 00:00:00 79 KG Height 2020-07-30 12:01:00 167 CM Weight 2020-07-30 12:01:00 79.2 KG Height 2020-07-30 09:12:00 168 CM Weight 2020-07-30 00:04:00 80.3 KG Body Temperature 2020-08-04 11:00:00 97 [degF] [facility] (LUF/ANKIT/SA) Pulse Rate 2020-08-04 11:00:00 87 /min [facility] (LUF/ANKIT/SA) Respiratory Rate 2020-08-04 11:00:00 16 /min [facility] (LUF/ANKIT/SA) O2% BldC Oximetry 2020-08-04 11:00:00 95 % [facility] (LUF/ANKIT/SA) BP Systolic 2020-08-04 11:00:00 136 mm[Hg] [facility] (LUF/ANKIT/SA) BP Diastolic 2020-08-04 11:00:00 70 mm[Hg] [facility] (LUF/ANKIT/SA) Weight 2020-08-03 23:00:00 77.5 kg [facility] (LUF/ANKIT/SA) Height 2020-07-30 12:01:00 167 cm [facility] (LUF/ANKIT/SA) Heart Rate 2020-07-28 23:12:00 92 /min [facility] (LUF/ANKIT/SA) Body Temperature 2019-08-17 12:22:00 98.1 [degF] [facility] (LUF/ANKIT/SA) Pulse Rate 2019-08-17 12:22:00 98 /min [facility] (LUF/ANKIT/SA) Respiratory Rate 2019-08-17 12:22:00 16 /min [facility] (LUF/ANKIT/SA) O2% BldC Oximetry 2019-08-17 12:22:00 97 % [facility] (LUF/ANKIT/SA) BP Systolic 2019-08-17 12:22:00 135 mm[Hg] [facility] (LUF/ANKIT/SA) BP Diastolic 2019-08-17 12:22:00 80 mm[Hg] [facility] (LUF/ANKIT/SA) Height 2019-08-17 12:22:00 68 [in_i] [facility] (LUF/ANKIT/SA) Weight 2019-08-17 12:22:00 72.57 kg [facility] (LUF/ANKIT/SA) BMI (Body Mass Index) 2019-08-17 12:22:00 24.5 kg/m2 [facility] (LUF/ANKIT/SA) Procedures This patient has no known procedures. Encounters Start End Encounter Admission Attending Care Care Encounter Source Date/Time Date/Time Type Type Clinicians Facility Department ID 2021-08-31 Outpatient [facility] [id number] [place] 21:38:39 [id number] [facility] 2020-07-29 2020-08-04 SEPSIS E ASHLEY, [place] [id number] [facility] [address] 01:30:00 16:58:00 UNSPECIFIE [facility] D [facility], Memor ia [address] (LUF/LI [address], V/SA) [place] [address] 2020-07-29 2020-07-29 Inpatient [facility] [id number] [facility] St 00:00:00 00:00:00 JERMYN [id number] [facility], [id number] Memor ia [id number] (LUF/LI A[address], V/[place]) [place] [id number] 2020-07-29 2020-07-29 Inpatient [facility] [id number] [facility] St 00:00:00 00:00:00 JERMYN [id number] [facility], [id number] Memor ia [id number] (LUF/LI A[address], V/SA) [place] [address] 2020-02-21 2020-02-21 BENIGN O HARRISON, [place] [id number] [facility] 11:34[facility]00 23:59:00 [facility] [place], Memor ia WO LUTS [address] ([address], V/SA) [place] [id number] 2020-02-16 2020-02-16 HTN HEART O HARRISON, [place] [id number] 14:58:00 23:59:00 DISEASE [facility] FAIL [address] ([address], V/SA) [place] [address] 2020-01-25 2020-01-25 LOCALIZED O HARRISON, [place] [id number] 14:53:00 23:59:00 EDEMA [facility] [address] ([address], V/SA) [place] [address] 2020-01-17 2020-01-17 Inpatient O HARRISON, [place] [id number] 09:07:00 23:59:00 [facility] [address] ([address], V/SA) [place] [address] 2019-08-17 2019-08-17 CELLULITIS E ASHLEY, [place] [id number] 15:02:00 19:15:00 [facility] ia [address] ([address], V/SA) [place] [address] Results Test Description Test Time Test Comments Results Result [facility] e Comments CULTURE, AEROBIC 2020-08-04 right foot Specimen: 10:06:00 WoundCollected: 07/29/2020 14:07 Status: Final Last Updated: 08/04/2020 10:06 (1) right foot CULTURE (Final) (R) (Final) Moderate Gram Negative Bacilli Many Staphylococcus aureus Many Streptococcus species Isolate (Final) (Final) Pantoea agglomerans (Enterobacter) Amikacin S S Ampicillin S S Ampicil/sulbac S S Aztreonam 8 I Ceftriaxone 2 I Ciprofloxacin S S Doripenem <=0.5 S Gentamicin S S Imipenem <=0.5 S Levofloxacin <=1 S Meropenem <=0.5 S Minocycline <=1 S Piperacillin S S Piperacil/tazobac <=8 S Tetracycline S S Ticarcil/clavu <=8 S Tobramycin S S Trimeth/sulfa S S Iso2 (Final) (Final) Staphylococcus aureus Ciprofloxacin <=0.5 S Clindamycin 0.5 S Daptomycin 0.25 S Erythromycin 0.5 S Gentamicin <=0.5 S Levofloxacin 0.5 S Linezolid 2 S Moxifloxacin <=0.25 S Oxacillin 0.5 S Rifampicin <=0.5 S Tetracycline <=1 S Tigecycline <=0.12 S Trimeth/Sulfa <=10 S Vancomycin 2 S Cefoxitin Sc (+/-) Negative - ICR (+/-) Negative - Iso 3 (Final) (C) (Final) 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 ISOLATED--RECOMMEND ISOLATION PROTOCOL Enterococcus faecalis Ampicillin <=2 S Ciprofloxacin >=8 R Erythromycin 1 I Gentamicin Synergy SYN-S S Levofloxacin >=8 R Streptomycin Synergy SYN-S S Tetracycline >=16 R Tigecycline <=0.12 S Vancomycin >=32 R CULTURE, AEROBIC 2020-08-04 Specimen: Leg 09:44:00 LeftCollected: 07/28/2020 23:22 Status: Final Last Updated: 08/04/2020 09:44 CULTURE (Final) (Final) Many Gram Negative Bacilli Isolate (Final) (Final) Escherichia coli Amikacin <=8.0000 S Ampicillin >16.0000 R Ampicil/sulbac 16.0000 I Aztreonam <=1.0000 S Cefazolin 4.0000 I Ceftazidime <=1.0000 S Ceftriaxone <=0.5000 S Ciprofloxacin <=0.5000 S Doripenem <=0.5000 S Ertapenem S Gentamicin <=2.0000 S Imipenem <=0.5000 S Levofloxacin <=1.0000 S Meropenem <=0.5000 S Minocycline <=1.0000 S Piperacillin >64.0000 R Piperacil/tazobac <=8.0000 S Tetracycline <=4.0000 S Ticarcil/clavu 16.0000 S Tobramycin <=2.0000 S Trimeth/sulfa >4.0000 R CULTURE, BLOOD 2020-08-04 To start 15mins Specimen: 07:29:00 after 1st BloodCollected: culture SECOND 07/29/2020 14:01 DRAW = 1 Status: Final aerobic and 1 Last Updated: anerobic 08/04/2020 07:29 Culture (1) To start 15mins after 1st culture SECOND DRAW = 1 aerobic and 1anerobic Culture CULTURE (Final) (Final) No Growth After 5 Days CULTURE, ANAEROBE 2020-08-04 To start 15mins Specimen: BLOOD 07:29:00 after 1st BloodCollected: culture SECOND 07/29/2020 14:01 DRAW = 1 Status: Final aerobic and 1 Last Updated: anerobic 08/04/2020 07:29 Culture (1) To start 15mins after 1st culture SECOND DRAW = 1 aerobic and 1anerobic Culture CULTURE (Final) (Final) No Growth After 5 Days CULTURE, BLOOD 2020-08-04 FIRST DRAW = 1 Specimen: 07:29:00 aerobic and 1 BloodCollected: anerobic 07/29/2020 13:46 Culture Status: Final Last Updated: 08/04/2020 07:29 (1) FIRST DRAW = 1 aerobic and 1 anerobic Culture CULTURE (Final) (Final) No Growth After 5 Days CULTURE, ANAEROBE 2020-08-04 FIRST DRAW = 1 Specimen: BLOOD 07:29:00 aerobic and 1 BloodCollected: anerobic 07/29/2020 13:46 Culture Status: Final Last Updated: 08/04/2020 07:29 (1) FIRST DRAW = 1 aerobic and 1 anerobic Culture CULTURE (Final) (Final) No Growth After 5 Days POTASSIUM 2020-08-03 15:08:00 Test Item Value Reference Range Interpretation Comme nts Potassium (test code = K) 3.8 mmol/l 3.5-5.1 CULTURE, [id number] 07:24:00Specimen: BloodCollected: 07/29/2020 05:20 Status: Final Last Updated: 08/03/2020 07:23 CULTURE (Final) (Final) No Growth After 5 DaysCULTURE, [id number] 07:24:00Specimen: BloodCollected: 07/28/2020 23:42 Status: Final Last Updated: 08/03/2020 07:23 CULTURE (Final) (Final) No Growth After 5 [id number] 07:05:00 Test Item Value Reference Range Interpretation Comments Sodium (test code = 134 mmol/l 136-146 L NA) Potassium (test 3.4 mmol/l 3.5-5.1 L code = K) Chloride (test code 102 mmol/l 98-107 = CL) Calcium (test code 9.0 mg/dl 8.5-10.1 = CALC) CO2 (test code = 26 mmol/l 21-32 CO2) Glucose (test code 82 mg/dl 74-106 = GLU) BUN (test code = 23.0 mg/dl 7.0-18.0 H BUN) Creatinine (test 0.9 mg/dl 0.5-1.3 code = CREA) EGFR if >60 [place] (test code mL/min/1.73m\\ = EGFRAA) S\\2 EGFR if Non- >60 Estimate d Glomerular [place]i (test code mL/min/1.73m\\ Filtrat ion Rate (eGFR) = EGFRNA) S\\2 Reference Inter vals Decision Points for 18 years and older and average body ma ss: >= 60 Does not exc lude kidney disease. 30 - 59 Suggests modera te chronic kidney disease and indicat es the need for furthe r investigation including asses sment of proteinuria and cardiovascular factors. < 30 Usually in dicates a need for refe rral for assessment and management of c hronic kidney failure. CBC WITH AUTO [id number] 06:36:00 Test Item Value Reference Range Interpretation Comments WBC (test code = 9.83 10\\S\\3/ul 4.80-10.80 WBC) RBC (test code = 4.45 10\\S\\6/ul 4.70-6.10 L RBC) Hemoglobin (test 13.3 gm/dl 14.0-18.0 L code = HGB) Hematocrit (test 40.9 % 42.0-50.0 L code = HCT) MCV (test code = 91.9 fL 80.0-94.0 MCV) MCH (test code = 29.9 pg 27.0-31.0 MCH) MCHC (test code = 32.5 gm/dl 33.0-37.0 L MCHC) RDW (test code = 12.2 % 11.5-14.5 RDWVC) Platelet (test code 280 10\\S\\3/ul 130-400 = PLT) MPV (test code = 10.8 fL 7.4-10.4 A "NOT MEASUR ED" MPV) RESULTS ARE DIS PLAYED WHEN THE INSTRU MENT HAS A SUPPRESSE D OR UNREPORTABLE RE SULT. THIS WILL MOST OFTEN HAPPEN WITH THE MPV WHEN THERE IS A N ABNORMAL PLATEL ET DISTRIBUTION DU E TO A CRITICAL LOW VA LUE OR PLATELET CLUMPI NG. THE RDW MAY BE SUPPRESSED IF T HERE ARE MULTIPLE PE AKS PRESENT ON THE RBC HISTOGRAM. IN THIS CASE, A MANUAL REVIEW OF THE SLIDE WI LL BE PERFORMED, AND RBC MORPHOLOGY WILL BE NOTED ON THE RE PORT. NE% (test code = 61.7 % 42.0-75.0 NE) LY% (test code = 20.4 % 13.0-42.0 LY) MO% (test code = 9.7 % 4.0-14.0 MO) EO% (test code = 7.1 % 1.0-5.0 H EO) BA% (test code = 0.7 % 0.0-3.0 BA) IG% (test code = 0.4 % 0.0-0.4 IG%) CBC WITH AUTO [id number] 05:34:00 Test Item Value Reference Range Interpretation Comments WBC (test code = 9.13 10\\S\\3/ul 4.80-10.80 WBC) RBC (test code = 4.47 10\\S\\6/ul 4.70-6.10 L RBC) Hemoglobin (test 13.3 gm/dl 14.0-18.0 L code = HGB) Hematocrit (test 40.7 % 42.0-50.0 L code = HCT) MCV (test code = 91.1 fL 80.0-94.0 MCV) MCH (test code = 29.8 pg 27.0-31.0 MCH) MCHC (test code = 32.7 gm/dl 33.0-37.0 L MCHC) RDW (test code = 12.4 % 11.5-14.5 RDWVC) Platelet (test code 284 10\\S\\3/ul 130-400 = PLT) MPV (test code = 10.5 fL 7.4-10.4 A "NOT MEASUR ED" MPV) RESULTS ARE DIS PLAYED WHEN THE INSTRU MENT HAS A SUPPRESSE D OR UNREPORTABLE RE SULT. THIS WILL MOST OFTEN HAPPEN WITH THE MPV WHEN THERE IS A N ABNORMAL PLATEL ET DISTRIBUTION DU E TO A CRITICAL LOW VA LUE OR PLATELET CLUMPI NG. THE RDW MAY BE SUPPRESSED IF T HERE ARE MULTIPLE PE AKS PRESENT ON THE RBC HISTOGRAM. IN THIS CASE, A MANUAL REVIEW OF THE SLIDE WI LL BE PERFORMED, AND RBC MORPHOLOGY WILL BE NOTED ON THE RE PORT. NE% (test code = 64.6 % 42.0-75.0 NE) LY% (test code = 18.4 % 13.0-42.0 LY) MO% (test code = 8.1 % 4.0-14.0 MO) EO% (test code = 7.8 % 1.0-5.0 H EO) BA% (test code = 0.7 % 0.0-3.0 BA) IG% (test code = 0.4 % 0.0-0.4 IG%) [id number] 05:30:00 Test Item Value Reference Range Interpretation Comments Sodium (test code = 138 mmol/l 136-146 NA) Potassium (test 3.2 mmol/l 3.5-5.1 L code = K) Chloride (test code 103 mmol/l 98-107 = CL) Calcium (test code 8.8 mg/dl 8.5-10.1 = CALC) CO2 (test code = 29 mmol/l 21-32 CO2) Glucose (test code 85 mg/dl 74-106 = GLU) BUN (test code = 22.0 mg/dl 7.0-18.0 H BUN) Creatinine (test 1.0 mg/dl 0.5-1.3 code = CREA) T Protein (test 7.6 gm/dl 6.4-8.2 code = TP) Albumin (test code 3.3 gm/dl 3.4-5.0 L = ALB) A/G Ratio (test 0.8 % 1.1-2.2 L code = AGRAT) AST (SGOT) (test 39 U/L 15-37 H code = AST) ALT (SGPT) (test 37 U/L 13-61 code = ALT) Alkaline Phos (test 72 U/L 45-117 code = ALKP) Total Bilirubin 0.6 mg/dl 0.2-1.0 (test code = TBIL) Globulin (test code 4.3 gm/dl 2.3-3.5 H = GLOBU) Calcium, Corrected 9.4 mg/dl 8.4-10.2 Various f ormulas exist (test code = for corrected s mauri CALCCORR) calcium results , each yielding differ ent values. This corrected resul t was based on the fo rmula: Corrected Calci um = SerumCalcium + [0.8 * ( 4 - SerumAlbu min)] EGFR if >60 Kuwaiti (test code mL/min/1.73m\\ = EGFRAA) S\\2 EGFR if Non- >60 Estimate d Glomerular [place]i (test code mL/min/1.73m\\ Filtrat ion Rate (eGFR) = EGFRNA) S\\2 Reference Inter vals Decision Points for 18 years and older and average body ma ss: >= 60 Does not exc lude kidney disease. 30 - 59 Suggests modera te chronic kidney disease and indicat es the need for furthe r investigation including asses sment of proteinuria and cardiovascular factors. < 30 Usually in dicates a need for refe rral for assessment and management of c hronic kidney failure. VANCOMYCIN, [id number] 16:30:00 Test Item Value Reference Range Interpretation Comments Vancomycin, Trough 21.4 ug/ml 15.0-20.0 12/29/2008 Change in (test code = Therapeutic Ran ge, for VANCT) Trough Level, h as been implemented per P&T committee. INTERPRETATION GUIDE: CONS IDER SENSITIVITY REP ORT IF ADELA IS = 1 THERAPEUTIC RAN GE IS 15-20 ug/ml IF ADELA IS > OR = 2 CO NSIDER ALTERNATE THERA PY Critical values were called to STEVE Montenegro by [id number] on 08/01/20 16:30 . Results were read back by STEVE Montenegro.[id number] 05:55:00 Test Item Value Reference Range Interpretation Comments Magnesium (test code = MG) 2.1 mg/dl 1.6-2.6 [id number] 05:55:00 Test Item Value Reference Range Interpretation Comments Sodium (test code = 137 mmol/l 136-146 NA) Potassium (test 3.4 mmol/l 3.5-5.1 L code = K) Chloride (test code 105 mmol/l 98-107 = CL) Calcium (test code 8.5 mg/dl 8.5-10.1 = CALC) CO2 (test code = 24 mmol/l 21-32 CO2) Glucose (test code 80 mg/dl 74-106 = GLU) BUN (test code = 17.0 mg/dl 7.0-18.0 BUN) Creatinine (test 1.0 mg/dl 0.5-1.3 code = CREA) T Protein (test 7.5 gm/dl 6.4-8.2 code = TP) Albumin (test code 3.2 gm/dl 3.4-5.0 L = ALB) A/G Ratio (test 0.7 % 1.1-2.2 L code = AGRAT) AST (SGOT) (test 25 U/L 15-37 code = AST) ALT (SGPT) (test 25 U/L 13-61 code = ALT) Alkaline Phos (test 71 U/L 45-117 code = ALKP) Total Bilirubin 0.8 mg/dl 0.2-1.0 (test code = TBIL) Globulin (test code 4.3 gm/dl 2.3-3.5 H = GLOBU) Calcium, Corrected 9.1 mg/dl 8.4-10.2 Various f ormulas exist (test code = for corrected s mauri CALCCORR) calcium results , each yielding differ ent values. This corrected resul t was based on the fo rmula: Corrected Calci um = SerumCalcium + [0.8 * ( 4 - SerumAlbu min)] EGFR if >60 [place]i (test code mL/min/1.73m\\ = EGFRAA) S\\2 EGFR if Non- >60 Estimate d Glomerular [place]i (test code mL/min/1.73m\\ Filtrat ion Rate (eGFR) = EGFRNA) S\\2 Reference Inter vals Decision Points for 18 years and older and average body ma ss: >= 60 Does not exc lude kidney disease. 30 - 59 Suggests modera te chronic kidney disease and indicat es the need for furthe r investigation including asses sment of proteinuria and cardiovascular factors. < 30 Usually in dicates a need for refe rral for assessment and management of c hronic kidney failure. CBC WITH AUTO [id number] 05:24:00 Test Item Value Reference Range Interpretation Comments WBC (test code = 10.09 4.80-10.80 WBC) 10\\S\\3/ul RBC (test code = 4.38 10\\S\\6/ul 4.70-6.10 L RBC) Hemoglobin (test 13.0 gm/dl 14.0-18.0 L code = HGB) Hematocrit (test 40.8 % 42.0-50.0 L code = HCT) MCV (test code = 93.2 fL 80.0-94.0 MCV) MCH (test code = 29.7 pg 27.0-31.0 MCH) MCHC (test code = 31.9 gm/dl 33.0-37.0 L MCHC) RDW (test code = 12.4 % 11.5-14.5 RDWVC) Platelet (test code 268 10\\S\\3/ul 130-400 = PLT) MPV (test code = 10.9 fL 7.4-10.4 A "NOT MEASUR ED" MPV) RESULTS ARE DIS PLAYED WHEN THE INSTRU MENT HAS A SUPPRESSE D OR UNREPORTABLE RE SULT. THIS WILL MOST OFTEN HAPPEN WITH THE MPV WHEN THERE IS A N ABNORMAL PLATEL ET DISTRIBUTION DU E TO A CRITICAL LOW VA LUE OR PLATELET CLUMPI NG. THE RDW MAY BE SUPPRESSED IF T HERE ARE MULTIPLE PE AKS PRESENT ON THE RBC HISTOGRAM. IN THIS CASE, A MANUAL REVIEW OF THE SLIDE WI LL BE PERFORMED, AND RBC MORPHOLOGY WILL BE NOTED ON THE RE PORT. NE% (test code = 68.7 % 42.0-75.0 NE) LY% (test code = 14.8 % 13.0-42.0 LY) MO% (test code = 8.7 % 4.0-14.0 MO) EO% (test code = 6.6 % 1.0-5.0 H EO) BA% (test code = 0.8 % 0.0-3.0 BA) IG% (test code = 0.4 % 0.0-0.4 IG%) CBC AUTO [id number] 13:41:00 Test Item Value Reference Range Interpretation Comments Sodium (test code = 137 mmol/l 136-146 NA) Potassium (test 3.4 mmol/l 3.5-5.1 L code = K) Chloride (test code 102 mmol/l 98-107 = CL) Calcium (test code 9.4 mg/dl 8.5-10.1 = CALC) CO2 (test code = 33 mmol/l 21-32 H CO2) Glucose (test code 114 mg/dl 74-106 H = GLU) BUN (test code = 15.0 mg/dl 7.0-18.0 BUN) Creatinine (test 1.1 mg/dl 0.5-1.3 code = CREA) EGFR if >60 [place] (test code mL/min/1.73m\\ = EGFRAA) S\\2 EGFR if Non- >60 Estimate d Glomerular [place] (test code mL/min/1.73m\\ Filtrat ion Rate (eGFR) = EGFRNA) S\\2 Reference Inter vals Decision Points for 18 years and older and average body ma ss: >= 60 Does not exc lude kidney disease. 30 - 59 Suggests modera te chronic kidney disease and indicat es the need for furthe r investigation including asses sment of proteinuria and cardiovascular factors. < 30 Usually in dicates a need for refe rral for assessment and management of c hronic kidney failure. VANCOMYCIN, [id number] 04:00:00 Test Item Value Reference Range Interpretation Comments Vancomycin, Trough 17.9 ug/ml 15.0-20.0 12/29/2008 Change in (test code = Therapeutic Ran ge, for VANCT) Trough Level, h as been implemented per P&T committee. INTERPRETATION GUIDE: CONS IDER SENSITIVITY REP ORT IF ADELA IS = 1 THERAPEUTIC RAN GE IS 15-20 ug/ml IF ADELA IS > OR = 2 CO NSIDER ALTERNATE THERA PY [id number] 10:00:00 Test Item Value Reference Range Interpretation Comments Sodium (test code = 139 mmol/l 136-146 NA) Potassium (test 3.6 mmol/l 3.5-5.1 code = K) Chloride (test code 105 mmol/l 98-107 = CL) Calcium (test code 8.5 mg/dl 8.5-10.1 = CALC) CO2 (test code = 31 mmol/l 21-32 CO2) Glucose (test code 119 mg/dl 74-106 H = GLU) BUN (test code = 14.0 mg/dl 7.0-18.0 BUN) Creatinine (test 1.0 mg/dl 0.5-1.3 code = CREA) T Protein (test 7.0 gm/dl 6.4-8.2 code = TP) Albumin (test code 3.0 gm/dl 3.4-5.0 L = ALB) A/G Ratio (test 0.8 % 1.1-2.2 L code = AGRAT) AST (SGOT) (test 18 U/L 15-37 code = AST) ALT (SGPT) (test 18 U/L 13-61 code = ALT) Alkaline Phos (test 66 U/L 45-117 code = ALKP) Total Bilirubin 0.7 mg/dl 0.2-1.0 (test code = TBIL) Globulin (test code 4.0 gm/dl 2.3-3.5 H = GLOBU) Calcium, Corrected 9.3 mg/dl 8.4-10.2 Various f ormulas exist (test code = for corrected s mauri CALCCORR) calcium results , each yielding differ ent values. This corrected resul t was based on the fo rmula: Corrected Calci um = SerumCalcium + [0.8 * ( 4 - SerumAlbu min)] EGFR if >60 [place]i (test code mL/min/1.73m\\ = EGFRAA) S\\2 EGFR if Non- >60 Estimate d Glomerular [place] (test code mL/min/1.73m\\ Filtrat ion Rate (eGFR) = EGFRNA) S\\2 Reference Inter vals Decision Points for 18 years and older and average body ma ss: >= 60 Does not exc lude kidney disease. 30 - 59 Suggests modera te chronic kidney disease and indicat es the need for furthe r investigation including asses sment of proteinuria and cardiovascular factors. < 30 Usually in dicates a need for refe rral for assessment and management of c hronic kidney failure. CBC WITH AUTO [id number] 09:15:00 Test Item Value Reference Range Interpretation Comments WBC (test code = 8.17 10\\S\\3/ul 4.80-10.80 WBC) RBC (test code = 4.11 10\\S\\6/ul 4.70-6.10 L RBC) Hemoglobin (test 12.3 gm/dl 14.0-18.0 L code = HGB) Hematocrit (test 38.3 % 42.0-50.0 L code = HCT) MCV (test code = 93.2 fL 80.0-94.0 MCV) MCH (test code = 29.9 pg 27.0-31.0 MCH) MCHC (test code = 32.1 gm/dl 33.0-37.0 L MCHC) RDW (test code = 12.9 % 11.5-14.5 RDWVC) Platelet (test code 235 10\\S\\3/ul 130-400 = PLT) MPV (test code = 10.5 fL 7.4-10.4 A "NOT MEASUR ED" MPV) RESULTS ARE DIS PLAYED WHEN THE INSTRU MENT HAS A SUPPRESSE D OR UNREPORTABLE RE SULT. THIS WILL MOST OFTEN HAPPEN WITH THE MPV WHEN THERE IS A N ABNORMAL PLATEL ET DISTRIBUTION DU E TO A CRITICAL LOW VA LUE OR PLATELET CLUMPI NG. THE RDW MAY BE SUPPRESSED IF T HERE ARE MULTIPLE PE AKS PRESENT ON THE RBC HISTOGRAM. IN THIS CASE, A MANUAL REVIEW OF THE SLIDE WI LL BE PERFORMED, AND RBC MORPHOLOGY WILL BE NOTED ON THE RE PORT. NE% (test code = 72.9 % 42.0-75.0 NE) LY% (test code = 11.0 % 13.0-42.0 L LY) MO% (test code = 7.8 % 4.0-14.0 MO) EO% (test code = 7.5 % 1.0-5.0 H EO) BA% (test code = 0.4 % 0.0-3.0 BA) IG% (test code = 0.4 % 0.0-0.4 IG%) STAPHSR [id number] 19:35:00 Test Item Value Reference Range Interpretation Comments Staph MSSA (test code = STMSSA) Negative Negative N Staph MRSA (test code = STMRSA) Negative Negative N GLYCOSALATED [id number] 18:32:00 Test Item Value Reference Range Interpretation Comments Hemoglobin A1C (test 6.0 % 4.2-6.3 A code = GLYCO) Mean Plasma Glucose 136 mg/dl 90-180 WHEN BHARTI T RESULTS FOR (test code = MPG) A1C EXCEED 14.0, THE LINEAR LIMIT OF THE INSTRUMENT, THE CALCULATED RESU LT FOR THE MEAN GLUCOS E IS NOT RELIABLE. TSH (Ultra Sensitive)2020-07-29 14:47:00 Test Item Value Reference Range Interpretation Comments TSH (test code = TSH) 0.92 mIU/L 0.35-3.74 CORONARY [id number] 14:47:00 Test Item Value Reference Range Interpretation Comments Triglycerides (test 66 mg/dl 0-149 Trig. In terpretation code = TRIG) Guide: Nor mal: < 150 mg/dl Borderline High : 150 - 199 mg/dl High: 200 - 499 mg/dl Very High: >= 5 00 mg/dl Cholesterol (test code 108 mg/dl 0-200 = CHOL) HDL (test code = HDL) 50 mg/dl 35-86 dLDL (test code = 55 mg/dl 0-99 Direct LDL DILDL) Intrepretations : Optimal: <100 mg/dl Suspect: 100 - 129 mg/dl Border line: 130 - 159 mg/dl High: 160 - 189 mg/dl Very High: >1 90 mg/dl Risk Factor (test code 2.2 0.0-5.0 Risk Factor = RFACT) Men Women R isk Factor 3.4 3.3 1/ 2 Average 5.0 4.4 Average 9.6 7.1 2X Average 24.0 11.0 3X Average vLDL (test code = 13 mg/dl 20-50 L VLDL) COVID EXTENDED [id number] 04:36:00 Test Item Value Reference Range Interpretation Comments FT (test code Negative Negative N [facility] RS-CoV-2 = COVID) (qualifier value) reagent is for in vitro use under FDA E mergency Use Authorizati on only. For questions regarding your test resul ts, please contact the [facility] at [phone] . FT (test code Negative Negative N The SARS-CoV-2 /Flu/RSV = FLUAPCR) (qualifier value) test is a rapid, multiplexed darlyn l-time RT-PCR test int ended for the simultaneou s qualitative det ection and differentia tion of SARS-CoV-2, Inf luenza A, Influenza B, an d Respiratory Syn cytial Virus (RSV) vir al RNA in either nasophar yngeal swab, nasal swa b or nasal wash/aspi rate specimens colle cted from individuals of respiratory vir al infection consi stent with Covid-19 b y their healthcare prov ider. FT (test code Negative Negative N = FLUBPCR) (qualifier value) FT (test code Negative Negative N = RSV) (qualifier value) US ARTERIES LEG UNIL [id number] 03:21:10 [facility] ([facility]/[place])Name: OSWALDO VASQUEZ : 1930 Sex: MPROCEDURE INFORMATION:Exam: US Duplex Right Lower Extremity Arteries Or Arterial Bypass GraftsExam date and time: 07/29/2020 1:35 AMAge: 89 years oldClinical indication: Edema, localizedand other: Wound; Lower extremity, right;Patient HX: Right leg wound x 1 month from mid calf to dst footTECHNIQUE:Imaging protocol: Right Real- time duplex scan of the arteries or arterialbypass grafts of the right lower extremity with 2-D soto scale, color Dopplerflow and spectral waveform analysis. Images documented and saved.COMPARISON:No relevant prior studies available.FINDINGS:Diffuse plaque throughout the right lower extremity.Right common femoral artery: No occlusion .. Monophasic waveforms. 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 Monophasic waveform.Right popliteal artery: No occlusion .. Monophasic waveform.Right calf/foot arteries: Monophasic waveforms. Dorsalis pedis artery is notvisualized.Soft tissues: No hematoma or collection. Soft tissue edema.IMPRESSION:Monophasic waveforms throughout with dorsalis pedis artery not visualized..Nofocal occlusion.This Final report was electronically signed by Eun Summers MD on 3:20AM CDT.Dictated By: EUN SUMMERSDate: 07/29/2020 03:[id number] 02:47:00 Test Item Value Reference Range Interpretation Comments Sodium (test code = 139 mmol/l 136-146 NA) Potassium (test 4.2 mmol/l 3.5-5.1 code = K) Chloride (test code 106 mmol/l 98-107 = CL) Calcium (test code 9.3 mg/dl 8.5-10.1 = CALC) CO2 (test code = 28 mmol/l 21-32 CO2) Glucose (test code 94 mg/dl 74-106 = GLU) BUN (test code = 21.0 mg/dl 7.0-18.0 H BUN) Creatinine (test 1.1 mg/dl 0.5-1.3 code = CREA) T Protein (test 7.6 gm/dl 6.4-8.2 code = TP) Albumin (test code 3.6 gm/dl 3.4-5.0 = ALB) A/G Ratio (test 0.9 % 1.1-2.2 L code = AGRAT) AST (SGOT) (test 24 U/L 15-37 code = AST) ALT (SGPT) (test 25 U/L 13-61 code = ALT) Alkaline Phos (test 70 U/L 45-117 code = ALKP) Total Bilirubin 0.9 mg/dl 0.2-1.0 (test code = TBIL) Globulin (test code 4.0 gm/dl 2.3-3.5 H = GLOBU) Calcium, Corrected 9.6 mg/dl 8.4-10.2 Various f ormulas exist (test code = for corrected s mauri CALCCORR) calcium results , each yielding differ ent values. This corrected resul t was based on the fo rmula: Corrected Calci um = SerumCalcium + [0.8 * ( 4 - SerumAlbu min)] EGFR if >60 [place]i (test code mL/min/1.73m\\ = EGFRAA) S\\2 EGFR if Non- >60 Estimate d Glomerular [place] (test code mL/min/1.73m\\ Filtrat ion Rate (eGFR) = EGFRNA) S\\2 Reference Inter vals Decision Points for 18 years and older and average body ma ss: >= 60 Does not exc lude kidney disease. 30 - 59 Suggests modera te chronic kidney disease and indicat es the need for furthe r investigation including asses sment of proteinuria and cardiovascular factors. < 30 Usually in dicates a need for refe rral for assessment and management of c hronic kidney failure. PT AND [id number] 00:23:00 Test Item Value Reference Range Interpretation Comments Protime (test code 11.0 seconds 9.5-12.1 = PT) INR (test code = 1.0 0.9-1.1 INR results are INR) intended ONLY t o monitor Oral Anticoagulant t herapy in stablized pa tients. The INR Therape utic Range is 2.0 - 3.0 Patients with a mechanical hear t, the INR Range is 2. 5 - 3.5 [id number] 00:23:00 Test Item Value Reference Range Interpretation Comments aPTT (test code = PTT) 27.0 seconds 23.9-30.7 US VEINS LEG UNIL [id number] 00:08:40 [facility] ([facility]/[place])Name: OSWALDO VASQUEZ : 1930 Sex: MPROCEDURE INFORMATION:Exam: US Duplex Right Lower Extremity Veins, LimitedExam date and time: 07/28/2020 11:23 PMAge: 89 years oldClinical indication: Swelling (edema) of limb; Lower extremity, right; PatientHX: Cellulitis to right lower exTECHNIQUE:Imaging protocol: Real-time Duplex ultrasound of the Right Lower Extremity with2-D soto scale, color Doppler flow and spectral waveform analysis with imagedocumentation. Limited exam was focused on the right lower extremity veins.COMPARISON:No relevant prior studies available.FINDINGS:Right deep veins: Unremarkable. The common femoral, femoral, proximal profundafemoral and popliteal veins are patent without thrombus. Normal Dopplerwaveforms. Normal compressibility and/or augmentation response.Right superficial veins: Unremarkable. Saphenofemoral junction is patentwithout thrombus.Soft tissues: Unremarkable.IMPRESSION:No evidence of deep vein thrombosis.This Final report was electronically signed by Eun Summers MD on 12:08 AM CDT.Dictated By: EUN SUMMERSDate: 07/29/2020 00:08STAT LAB [id number] 00:04:00 Test Item Value Reference Range Interpretation Comments B-Peptide (test code = BNP) 149 pg/ml 0-100 H STAT LAB LACTIC [id number] 23:57:00 Test Item Value Reference Range Interpretation Comments LACTATE (test code = LAC) 1.10 mmol/l 0.90-1.70 STAT LAB CBC WITH AUTO [id number] 23:57:00 Test Item Value Reference Range Interpretation Comments WBC (test code = WBC) 12.57 10\\S\\3/ul 4.80-10.80 H RBC (test code = RBC) 4.09 10\\S\\6/ul 4.70-6.10 L Hemoglobin (test code = HGB) 12.3 gm/dl 14.0-18.0 L Hematocrit (test code = HCT) 37.5 % 42.0-50.0 L MCV (test code = MCV) 91.7 fL 80.0-94.0 MCH (test code = MCH) 30.1 pg 27.0-31.0 MCHC (test code = MCHC) 32.8 gm/dl 33.0-37.0 L Platelet (test code = PLT) 256 10\\S\\3/ul 130-400 RDW (test code = RDWVC) 12.7 % 11.5-14.5 MPV (test code = MPV) 10.4 fL 7.4-10.4 A NE% (test code = NE) 70.8 % 42.0-75.0 LY% (test code = LY) 14.2 % 13.0-42.0 MO% (test code = MO) 10.3 % 4.0-14.0 EO% (test code = EO) 4.2 % 1.0-3.0 H BA% (test code = BA) 0.3 % 1.0-3.0 L IG% (test code = IG%) 0.2 % 0.0-0.4 [id number] 15:40:00 Test Item Value Reference Range Interpretation Comments PSA (test code = PSA) 1.94 ng/ml 0.01-4.00 [id number] 16:54:00 Test Item Value Reference Range Interpretation Comments Sodium (test code = 140 mmol/l 137-145 NA) Potassium (test 4.1 mmol/l 3.5-5.1 code = K) Chloride (test code 106 mmol/l 98-107 = CL) Calcium (test code 8.6 mg/dl 8.5-10.1 = CALC) CO2 (test code = 31 mmol/l 21-32 CO2) Glucose (test code 108 mg/dl 74-106 H = GLU) BUN (test code = 31.0 mg/dl 7.0-18.0 H BUN) Creatinine (test 1.3 mg/dl 0.5-1.3 code = CREA) EGFR if >60 [place] (test code mL/min/1.73m\\ = EGFRAA) S\\2 EGFR if Non- 56 Estimate d Glomerular [place] (test code mL/min/1.73m\\ Filtrat ion Rate (eGFR) = EGFRNA) S\\2 Reference Inter vals Decision Points for 18 years and older and average body ma ss: >= 60 Does not exc lude kidney disease. 30 - 59 Suggests modera te chronic kidney disease and indicat es the need for furthe r investigation including asses sment of proteinuria and cardiovascular factors. < 30 Usually in dicates a need for refe rral for assessment and management of c hronic kidney failure. [id number] 16:15:00 Test Item Value Reference Range Interpretation Comments Sodium (test code = 139 mmol/l 137-145 NA) Potassium (test 3.8 mmol/l 3.5-5.1 code = K) Chloride (test code 103 mmol/l 98-107 = CL) Calcium (test code 8.8 mg/dl 8.5-10.1 = CALC) CO2 (test code = 32 mmol/l 21-32 CO2) Glucose (test code 110 mg/dl 74-106 H = GLU) BUN (test code = 26.0 mg/dl 7.0-18.0 H BUN) Creatinine (test 1.0 mg/dl 0.5-1.3 code = CREA) EGFR if >60 [place] (test code mL/min/1.73m\\ = EGFRAA) S\\2 EGFR if Non- >60 Estimate d Glomerular [place] (test code mL/min/1.73m\\ Filtrat ion Rate (eGFR) = EGFRNA) S\\2 Reference Inter vals Decision Points for 18 years and older and average body ma ss: >= 60 Does not exc lude kidney disease. 30 - 59 Suggests modera te chronic kidney disease and indicat es the need for furthe r investigation including asses sment of proteinuria and cardiovascular factors. < 30 Usually in dicates a need for refe rral for assessment and management of c hronic kidney failure. GLYCOSALATED [id number] 13:05:00 Test Item Value Reference Range Interpretation Comments Hemoglobin A1C (test 5.5 % 4.2-6.3 A code = GLYCO) Mean Plasma Glucose 119 mg/dl 90-180 WHEN BHARTI T RESULTS FOR (test code = MPG) A1C EXCEED 14.0, THE LINEAR LIMIT OF THE INSTRUMENT, THE CALCULATED RESU LT FOR THE MEAN GLUCOS E IS NOT RELIABLE. HEPATIC FUNCTION PANEL (LIVER)2020-01-17 12:49:00 Test Item Value Reference Range Interpretation Comments T Protein (test code = TP) 8.2 gm/dl 6.4-8.2 Albumin (test code = ALB) 4.1 gm/dl 3.4-5.0 AST (SGOT) (test code = AST) 27 U/L 15-37 ALT (SGPT) (test code = ALT) 33 U/L 13-61 Alkaline Phos (test code = ALKP) 70 U/L 45-117 Total Bilirubin (test code = TBIL) 1.4 mg/dl 0.2-1.0 H Direct Bilirubin (test code = DBIL) 0.3 mg/dl 0.0-0.3 Indirect Bilirubin (test code = 1.1 mg/dl 0.0-1.1 IBIL) PRO-BNP(B-Type Natriuretic Peptide)2020-01-17 12:49:00 Test Item Value Reference Range Interpretation Comments Pro-BNP(B-Peptide 591 pg/ml 0-450 H THE METHOD OLOGY FOR ) (test code = DETECTION OF B-NATRIURETIC PROBNP) PEPTIDE HAS BEE N CHANGED TO "NT pro-BNP" . THE NORMAL RANGES HAVE FRANCINE NGED. PLEASE NOTE SANJEEV T RANGES ARE DEFINED BY THE AGE OF THE PATIENT. (<75 years old = 0-125 pg/ml 75years and older = 0-450pg /ml). VALUES ARE NOT INTERCHANGEABLE BETWEEN METHODS. 2006 [id number] 12:49:00 Test Item Value Reference Range Interpretation Comments Sodium (test code = 138 mmol/l 137-145 NA) Potassium (test 3.5 mmol/l 3.5-5.1 code = K) Chloride (test code 102 mmol/l 98-107 = CL) Calcium (test code 8.8 mg/dl 8.5-10.1 = CALC) CO2 (test code = 30 mmol/l 21-32 CO2) Glucose (test code 85 mg/dl 74-106 = GLU) BUN (test code = 22.0 mg/dl 7.0-18.0 H BUN) Creatinine (test 1.1 mg/dl 0.5-1.3 code = CREA) EGFR if >60 [place]i (test code mL/min/1.73m\\ = EGFRAA) S\\2 EGFR if Non- >60 Estimate d Glomerular [place]i (test code mL/min/1.73m\\ Filtrat ion Rate (eGFR) = EGFRNA) S\\2 Reference Inter vals Decision Points for 18 years and older and average body ma ss: >= 60 Does not exc lude kidney disease. 30 - 59 Suggests modera te chronic kidney disease and indicat es the need for furthe r investigation including asses sment of proteinuria and cardiovascular factors. < 30 Usually in dicates a need for refe rral for assessment and management of c hronic kidney failure. CORONARY [id number] 12:49:00 Test Item Value Reference Range Interpretation Comments Triglycerides (test 69 mg/dl 0-149 Trig. In terpretation code = TRIG) Guide: Nor mal: < 150 mg/dl Borderline High : 150 - 199 mg/dl High: 200 - 499 mg/dl Very High: >= 5 00 mg/dl Cholesterol (test code 143 mg/dl 0-200 = CHOL) HDL (test code = HDL) 69 mg/dl 35-86 dLDL (test code = 74 mg/dl 0-99 Direct LDL DILDL) Intrepretations : Optimal: <100 mg/dl Suspect: 100 - 129 mg/dl Border line: 130 - 159 mg/dl High: 160 - 189 mg/dl Very High: >1 90 mg/dl Risk Factor (test code 2.1 0.0-5.0 Risk Factor = RFACT) Men Women R isk Factor 3.4 3.3 1/ 2 Average 5.0 4.4 Average 9.6 7.1 2X Average 24.0 11.0 3X Average vLDL (test code = 14 mg/dl 20-50 L VLDL) CULTURE, ANAEROBE [id number] 17:43:00To start 15mins after 1st culture SECOND DRAW = 1 aerobic and 1 anerobic CultureSpecimen: BloodCollected: 08/17/2019 13:04 Status: Final Last Updated: 08/22/2019 17:42 (1) To start 15mins after 1st culture SECOND DRAW = 1 aerobic and 1anerobic Culture Culture Result (Final) (Final) No Growth After 5 DaysCULTURE, BLOOD 2019-08-22 17:43:00To start 15mins after 1st culture SECOND DRAW = 1 aerobic and 1 anerobic CultureSpecimen: BloodCollected: 08/17/2019 13:04 Status: Final Last Updated: 08/22/2019 17:42 (1) To start 15mins after 1st culture SECOND DRAW = 1 aerobic and 1anerobic Culture Culture Result (Final) (Final) No Growth After 5 DaysCULTURE, [id number] 17:43:00FIRST DRAW = 1 aerobic and 1 anerobic CultureSpecimen: BloodCollected: 08/17/2019 13:00 Status: Final Last Updated: 08/22/2019 17:42 (1) FIRST DRAW = 1 aerobic and 1 anerobic Culture Culture Result (Final) (Final) No Growth After 5 Days CULTURE, ANAEROBE [id number] 17:42:00FIRST DRAW = 1 aerobic and 1 anerobic CultureSpecimen: BloodCollected: 08/17/2019 13:00 Status: Final Last Updated: 08/22/2019 17:42 (1) FIRST DRAW = 1 aerobic and 1 anerobic Culture Culture Result (Final) (Final) No Growth After 5 DaysBMP 2019-08-17 14:04:00 Test Item Value Reference Range Interpretation Comments Sodium (test code = 140 mmol/l 137-145 NA) Potassium (test 3.5 mmol/l 3.5-5.1 code = K) Chloride (test code 106 mmol/l 98-107 = CL) Calcium (test code 8.7 mg/dl 8.5-10.1 = CALC) CO2 (test code = 29 mmol/l 21-32 CO2) Glucose (test code 85 mg/dl 74-106 = GLU) BUN (test code = 18.0 mg/dl 7.0-18.0 BUN) Creatinine (test 0.8 mg/dl 0.5-1.3 code = CREA) EGFR if >60 [place] (test code mL/min/1.73m\\ = EGFRAA) S\\2 EGFR if Non- >60 Estimate d Glomerular [place] (test code mL/min/1.73m\\ Filtrat ion Rate (eGFR) = EGFRNA) S\\2 Reference Inter vals Decision Points for 18 years and older and average body ma ss: >= 60 Does not exc lude kidney disease. 30 - 59 Suggests modera te chronic kidney disease and indicat es the need for furthe r investigation including asses sment of proteinuria and cardiovascular factors. < 30 Usually in dicates a need for refe rral for assessment and management of c hronic kidney failure. STAT LAB CBC WITH AUTO [id number] 13:18:00 Test Item Value Reference Range Interpretation Comments WBC (test code = WBC) 7.15 10\\S\\3/ul 4.80-10.80 RBC (test code = RBC) 3.98 10\\S\\6/ul 4.70-6.10 L Hemoglobin (test code = HGB) 12.0 gm/dl 14.0-18.0 L Hematocrit (test code = HCT) 36.0 % 42.0-50.0 L MCV (test code = MCV) 90.5 fL 80.0-94.0 MCH (test code = MCH) 30.2 pg 27.0-31.0 MCHC (test code = MCHC) 33.3 gm/dl 33.0-37.0 Platelet (test code = PLT) 183 10\\S\\3/ul 130-400 RDW (test code = RDWVC) 13.9 % 11.5-14.5 MPV (test code = MPV) 10.6 fL 7.4-10.4 A NE% (test code = NE) 57.7 % 42.0-75.0 LY% (test code = LY) 25.5 % 13.0-42.0 MO% (test code = MO) 9.1 % 4.0-14.0 EO% (test code = EO) 7.0 % 1.0-3.0 H BA% (test code = BA) 0.6 % 1.0-3.0 L IG% (test code = IG%) 0.1 % 0.0-0.4 CBC WITH AUTO [id number] 07:34:00 Test Item Value Reference Range Interpretation Comments WBC (test code = 9.18 10\\S\\3/ul 4.80-10.80 WBC) RBC (test code = 4.85 10\\S\\6/ul 4.70-6.10 RBC) Hemoglobin (test 14.7 gm/dl 14.0-18.0 code = HGB) Hematocrit (test 43.1 % 42.0-50.0 code = HCT) MCV (test code = 88.9 fL 80.0-94.0 MCV) MCH (test code = 30.3 pg 27.0-31.0 MCH) MCHC (test code = 34.1 gm/dl 33.0-37.0 MCHC) RDW (test code = 13.2 % 11.5-14.5 RDWVC) Platelet (test code 284 10\\S\\3/ul 130-400 = PLT) MPV (test code = 10.8 fL 7.4-10.4 A "NOT MEASUR ED" MPV) RESULTS ARE DIS PLAYED WHEN THE INSTRU MENT HAS A SUPPRESSE D OR UNREPORTABLE RE SULT. THIS WILL MOST OFTEN HAPPEN WITH THE MPV WHEN THERE IS A N ABNORMAL PLATEL ET DISTRIBUTION DU E TO A CRITICAL LOW VA LUE OR PLATELET CLUMPI NG. THE RDW MAY BE SUPPRESSED IF T HERE ARE MULTIPLE PE AKS PRESENT ON THE RBC HISTOGRAM. IN THIS CASE, A MANUAL REVIEW OF THE SLIDE WI LL BE PERFORMED, AND RBC MORPHOLOGY WILL BE NOTED ON THE RE PORT. NE% (test code = 52.7 % 42.0-75.0 NE) LY% (test code = 30.1 % 13.0-42.0 LY) MO% (test code = 10.5 % 4.0-14.0 MO) EO% (test code = 6.0 % 1.0-5.0 H EO) BA% (test code = 0.5 % 0.0-3.0 BA) IG% (test code = 0.2 % 0.0-0.4 IG%) [id number] 06:05:00 Test Item Value Reference Range Interpretation Comments Sodium (test code = 143 mmol/l 137-145 NA) Potassium (test 3.4 mmol/l 3.5-5.1 L code = K) Chloride (test code 103 mmol/l 98-107 = CL) Calcium (test code 8.8 mg/dl 8.5-10.1 = CALC) CO2 (test code = 30 mmol/l 21-32 CO2) Glucose (test code 72 mg/dl 74-106 L = GLU) BUN (test code = 24.0 mg/dl 7.0-18.0 H BUN) Creatinine (test 1.1 mg/dl 0.5-1.3 code = CREA) EGFR if >60 [place] (test code mL/min/1.73m\\ = EGFRAA) S\\2 EGFR if Non- >60 Estimate d Glomerular [place] (test code mL/min/1.73m\\ Filtrat ion Rate (eGFR) = EGFRNA) S\\2 Reference Inter vals Decision Points for 18 years and older and average body ma ss: >= 60 Does not exc lude kidney disease. 30 - 59 Suggests modera te chronic kidney disease and indicat es the need for furthe r investigation including asses sment of proteinuria and cardiovascular factors. < 30 Usually in dicates a need for refe rral for assessment and management of c hronic kidney failure. [id number] 04:40:00 Test Item Value Reference Range Interpretation Comments Sodium (test code = 144 mmol/l 137-145 NA) Potassium (test 3.5 mmol/l 3.5-5.1 code = K) Chloride (test code 106 mmol/l 98-107 = CL) Calcium (test code 8.8 mg/dl 8.5-10.1 = CALC) CO2 (test code = 26 mmol/l 21-32 CO2) Glucose (test code 80 mg/dl 74-106 = GLU) BUN (test code = 34.0 mg/dl 7.0-18.0 H BUN) Creatinine (test 1.2 mg/dl 0.5-1.3 code = CREA) EGFR if >60 [place] (test code mL/min/1.73m\\ = EGFRAA) S\\2 EGFR if Non- >60 Estimate d Glomerular [place] (test code mL/min/1.73m\\ Filtrat ion Rate (eGFR) = EGFRNA) S\\2 Reference Inter vals Decision Points for 18 years and older and average body ma ss: >= 60 Does not exc lude kidney disease. 30 - 59 Suggests modera te chronic kidney disease and indicat es the need for furthe r investigation including asses sment of proteinuria and cardiovascular factors. < 30 Usually in dicates a need for refe rral for assessment and management of c hronic kidney failure. CBC WITH AUTO [id number] 04:22:00 Test Item Value Reference Range Interpretation Comments WBC (test code = 9.80 10\\S\\3/ul 4.80-10.80 WBC) RBC (test code = 5.00 10\\S\\6/ul 4.70-6.10 RBC) Hemoglobin (test 14.9 gm/dl 14.0-18.0 code = HGB) Hematocrit (test 43.8 % 42.0-50.0 code = HCT) MCV (test code = 87.6 fL 80.0-94.0 MCV) MCH (test code = 29.8 pg 27.0-31.0 MCH) MCHC (test code = 34.0 gm/dl 33.0-37.0 MCHC) RDW (test code = 13.2 % 11.5-14.5 RDWVC) Platelet (test code 293 10\\S\\3/ul 130-400 = PLT) MPV (test code = 11.0 fL 7.4-10.4 A "NOT MEASUR ED" MPV) RESULTS ARE DIS PLAYED WHEN THE INSTRU MENT HAS A SUPPRESSE D OR UNREPORTABLE RE SULT. THIS WILL MOST OFTEN HAPPEN WITH THE MPV WHEN THERE IS A N ABNORMAL PLATEL ET DISTRIBUTION DU E TO A CRITICAL LOW VA LUE OR PLATELET CLUMPI NG. THE RDW MAY BE SUPPRESSED IF T HERE ARE MULTIPLE PE AKS PRESENT ON THE RBC HISTOGRAM. IN THIS CASE, A MANUAL REVIEW OF THE SLIDE WI LL BE PERFORMED, AND RBC MORPHOLOGY WILL BE NOTED ON THE RE PORT. NE% (test code = 63.8 % 42.0-75.0 NE) LY% (test code = 21.3 % 13.0-42.0 LY) MO% (test code = 8.8 % 4.0-14.0 MO) EO% (test code = 5.4 % 1.0-5.0 H EO) BA% (test code = 0.4 % 0.0-3.0 BA) IG% (test code = 0.3 % 0.0-0.4 IG%) CULTURE, MARIBELL [id number] 17:18:[id number]: BloodCollected: 02/06/2019 13:42 Status: Final Last Updated: 02/11/2019 17:18 (1) er4 Culture Result (Final) (Final) No Growth After 5 DaysCULTURE, BLOOD 2019-02-11 17:18:[id number]: BloodCollected: 02/06/2019 13:42 Status: Final Last Updated: 02/11/2019 17:18 (1) er4 Culture Result (Final) (Final) No Growth After 5 DaysCULTURE, MARIBELL [id number] 17:18:00er4 Specimen: BloodCollected: 02/06/2019 13:30 Status: Final Last Updated: 02/11/2019 17:18 (1) er4 Culture Result (Final) (Final) No Growth After 5 DaysCULTURE, [id number] 17:18:37yd4Vtsvdxit: BloodCollected: 02/06/2019 13:30 Status: Final Last Updated: 02/11/2019 17:18 (1) er4 Culture Result (Final) (Final) No Growth After 5 DaysCT ABDOMEN/PELVIS W/[id number] 12:54:10NPO 4 hours. Do not withhold meds. with IVP to evaluate renal massesProcedure: CT ABDOMEN/PELVIS W/CONTRASTOrder Date: 02/10/2019 5:00 AMOrdering Provider: PRADEEP SEGURA .Clinical Indication: [id number]: Renal mass.Comparison: February 09, 2019TECHNIQUE:The abdomenand pelvis were scanned utilizing a multidetector helical scannerfrom the diaphragm to the lesser trochanter without and with contrast. Lowosmolar IV contrast was given. Coronal and sagittal reformations were obtained.This exam was performed according to the our departmental dose-optimizationprogramwhich includes automated exposure control, adjustment of the mA and/orkV according to patient size and/or use of iterative reconstruction techniques.DISCUSSION:LOWER THORAX: Normal.HEPATOBILIARY: The gallbladder is surgically absent. No focal hepatic lesion ispresent.SPLEEN: No splenomegaly.PANCREAS: No focal masses or ductal dilatation.ADRENALS: No adrenal nodules.KIDNEYS/URETERS: Exophytic low-density foci are seen arising from the upperpoles of the bilateral kidneys. The internal Hounsfield unitsare around 50 forthese hyperdense lesions. There is no hydronephrosis. Nonobstructing bilateralrenalcalculi are present measuring 2-3 mm.PELVIC ORGANS/BLADDER: Bladder is distended.PERITONEUM / RETROPERITONEUM: No free air or fluid.LYMPH NODES: No lymphadenopathy.VESSELS: Vascular calcifications are seen in the abdominal aorta and iliacvessels. No aneurysmal dilatation.GI TRACT: Sigmoid diverticulosis present. Scattered diverticula also seen in thedescending colon. No evidence for diverticulitis. Visualized appendix isunremarkable.BONES AND SOFT TISSUES: There is a left groin fat-containing inguinal hernia.Hernia neck measures 2.7 cm. Mild inflammatory changes are present. Noincarcerated bowel.IMPRESSION:Small to moderate fat-containing left inguinal hernia is present with subtlesuperimposed inflammatory change.Colonic diverticulosis without diverticulitis.Exophytic low-density foci arising from the bilateral kidneys may representproteinaceous/hemorrhagic cysts or less likely neoplasm. Findings could be bestassessed with CT IVP on a nonemergent/outpatient basis (current examination isperformed with an incorrect protocol for renal mass evaluation).Distended bladder. Consider decompression.Nonobstructing bilateral renal calculi.This final report was electronically signed by Dr Stephanie Dawson MD 02/10/201912:47 PMDictated By: FANNY DAWSONKDate: 02/10/2019 12:47CULTURE, [id number] 10:35:00Specimen: Leg RightCollected: 02/06/2019 17:00 Status: Final Last Updated: 02/10/2019 09:23 Culture Result (Final) (R) (Final) \\S\\Many Gram Negative Bacilli \\S\\Moderate Staphylococcusspecies Isolate (Final) (Final) Leccipriaonia adecarboxylata Amikacin <=2 S Ampicillin <=2 S Ampicillin/Sulbac <=2 S Cefazolin <=4 S Cefepime <=1 S Cefoxitin <=4 S Ceftazidime <=1 S Ceftriaxone <=1 S Ciprofloxacin <=0.25 S Gentamicin <=1 S Levofloxacin <=0.12 S Meropenem <=0.25 S Piperacillin/Tazo 16 S Tobramycin <=1 S Trimeth/Sulfa <=20 S Isolate (Final) (Final) Staphylococcus xylosus Ciprofloxacin <=0.5 S Clindamycin >=4 R Erythromycin 0.5 S Gentamicin <=0.5 S Levofloxacin 0.5 S Linezolid 2 S Moxifloxacin <=0.25 S Oxacillin S Rifampicin <=0.5 S Tetracycline <=1 S Tigecycline <=0.12 S Vancomycin 1 S Cefoxitin Sc (+/-) Negative - ICR (+/-) Negative - Result b efore changed by [id number] on 02/09/2019 07:07: Culture Result (Prelim) (Prelim) \\S\\Many Gram Negative BacilliVANCOMYCIN, [id number] 09:20:00 Test Item Value Reference Range Interpretation Comments Vancomycin, Trough 11.5 ug/ml 15.0-20.0 L 12/29/2008 Change in (test code = Therapeutic Ran ge, for VANCT) Trough Level, h as been implemented per P&T committee. INTERPRETATION GUIDE: CONS IDER SENSITIVITY REP ORT IF ADELA IS = 1 THERAPEUTIC RAN GE IS 15-20 ug/ml IF ADELA IS > OR = 2 CO NSIDER ALTERNATE THERA PY [id number] 05:57:00 Test Item Value Reference Range Interpretation Comments Sodium (test code = 145 mmol/l 137-145 NA) Potassium (test 3.6 mmol/l 3.5-5.1 code = K) Chloride (test code 107 mmol/l 98-107 = CL) Calcium (test code 8.6 mg/dl 8.5-10.1 = CALC) CO2 (test code = 31 mmol/l 21-32 CO2) Glucose (test code 80 mg/dl 74-106 = GLU) BUN (test code = 18.0 mg/dl 7.0-18.0 BUN) Creatinine (test 1.0 mg/dl 0.5-1.3 code = CREA) EGFR if >60 [place] (test code mL/min/1.73m\\ = EGFRAA) S\\2 EGFR if Non- >60 Estimate d Glomerular [place] (test code mL/min/1.73m\\ Filtrat ion Rate (eGFR) = EGFRNA) S\\2 Reference Inter vals Decision Points for 18 years and older and average body ma ss: >= 60 Does not exc lude kidney disease. 30 - 59 Suggests modera te chronic kidney disease and indicat es the need for furthe r investigation including asses sment of proteinuria and cardiovascular factors. < 30 Usually in dicates a need for refe rral for assessment and management of c hronic kidney failure. CBC WITH AUTO [id number] 05:44:00 Test Item Value Reference Range Interpretation Comments WBC (test code = 8.37 10\\S\\3/ul 4.80-10.80 WBC) RBC (test code = 4.64 10\\S\\6/ul 4.70-6.10 L RBC) Hemoglobin (test 13.8 gm/dl 14.0-18.0 L code = HGB) Hematocrit (test 41.5 % 42.0-50.0 L code = HCT) MCV (test code = 89.4 fL 80.0-94.0 MCV) MCH (test code = 29.7 pg 27.0-31.0 MCH) MCHC (test code = 33.3 gm/dl 33.0-37.0 MCHC) RDW (test code = 13.4 % 11.5-14.5 RDWVC) Platelet (test code 261 10\\S\\3/ul 130-400 = PLT) MPV (test code = 10.8 fL 7.4-10.4 A "NOT MEASUR ED" MPV) RESULTS ARE DIS PLAYED WHEN THE INSTRU MENT HAS A SUPPRESSE D OR UNREPORTABLE RE SULT. THIS WILL MOST OFTEN HAPPEN WITH THE MPV WHEN THERE IS A N ABNORMAL PLATEL ET DISTRIBUTION DU E TO A CRITICAL LOW VA LUE OR PLATELET CLUMPI NG. THE RDW MAY BE SUPPRESSED IF T HERE ARE MULTIPLE PE AKS PRESENT ON THE RBC HISTOGRAM. IN THIS CASE, A MANUAL REVIEW OF THE SLIDE WI LL BE PERFORMED, AND RBC MORPHOLOGY WILL BE NOTED ON THE RE PORT. NE% (test code = 66.4 % 42.0-75.0 NE) LY% (test code = 15.1 % 13.0-42.0 LY) MO% (test code = 10.2 % 4.0-14.0 MO) EO% (test code = 7.6 % 1.0-5.0 H EO) BA% (test code = 0.2 % 0.0-3.0 BA) IG% (test code = 0.5 % 0.0-0.4 H IG%) CT ABDOMEN/PELVIS W/WO [id number] 10:58:21NPO 4 hours. Do not withhold medsProcedure: CT ABDOMEN/PELVIS W/WO CONTRASTOrder Date: 02/09/2019 4:48 AMOrdering Provider: DR BHARATI Batistainical Indication: [id number]: Inguinal painComparison: 2012TECHNIQUE:The abdomen andpelvis were scanned utilizing a multidetector helical scannerfrom the diaphragm to the lesser trochanter without and with contrast. Lowosmolar IV contrast was given. Coronal and sagittal reformationswere obtained.This exam was performed according to the our departmental dose-optimizationprogram which includes automated exposure control, adjustment of the mA and/orkV according to patient size and/or use of iterative reconstruction techniques.DISCUSSION:LOWER THORAX: Normal.HEPATOBILIARY: The gallbladder is surgically absent. No focal hepatic lesion ispresent.SPLEEN: No splenomegaly.PANCREAS: No focal masses or ductal dilatation.ADRENALS: No adrenal nodules.KIDNEYS/URETERS: Exophytic low-density f oci are seen arising from the upperpoles of the bilateral kidneys. These are suboptimally assessed since there isextensive beam hardening artifact arising from the patient's left arm. There isno hydronephrosis. Nonobstructing bilateral renal calculi are present measuring2-3 mm. No hydronephrosis.PELVIC ORGANS/BLADDER: Unremarkable.PERITONEUM / RETROPERITONEUM: No free air or fluid.LYMPH NODES: No lymphadenopathy.VESSELS: Vascular calcifications are seen in the abdominal aorta and iliacvessels. No aneurysmal dilatation.GI TRACT: Sigmoid diverticulosis present. Scattered diverticula also seen in thedescending colon. No evidence for diverticulitis. Visualized appendix isunremarkable.BONES AND SOFT TISSUES: There is a left groin fat-containing inguinal hernia.Hernia neck measures 2.7 cm. Mild inflammatory changes are present. Noincarcerated bowel.IMPRESSION:Small to moderate fat-containing left inguinal hernia is present with subtlesuperimposed inflammatory change.Colonic diverticulosis without diverticulitis.Exophytic low-density foci arising from the bilateral kidneys may representcysts however,neoplastic process cannot be excluded especially in the rightkidney. Assessment is limited secondaryto beam hardening artifact arising frompatient's left arm. Consider nonemergent/short-term CT IVP with properpositioning/technique.Nonobstructing bilateral renal calculi.This final report was electronically signed by Dr Stephanie Dawson MD 02/09/201910:51 AMDictated By: FANNY DAWSONKDate: 02/09/2019 10:51VANCOMYCIN, [id number] 08:50:00 Test Item Value Reference Range Interpretation Comments Vancomycin, Random 8.6 ug/ml 0.0-40.0 NO NORMAL VALUES GIVEN (test code = VANCRA) FOR RAN DOM VANCOMYCIN SPECIMEN. (Trou gh therapeutic ran ge: 5 - 10 ug/ml) (Peak therapeutic ran ge: 30 - 40 ug/ml) [id number] 07:47:00 Test Item Value Reference Range Interpretation Comments Sodium (test code = 144 mmol/l 137-145 NA) Potassium (test 3.6 mmol/l 3.5-5.1 code = K) Chloride (test code 109 mmol/l 98-107 H = CL) Calcium (test code 8.2 mg/dl 8.5-10.1 L = CALC) CO2 (test code = 28 mmol/l 21-32 CO2) Glucose (test code 89 mg/dl 74-106 = GLU) BUN (test code = 15.0 mg/dl 7.0-18.0 BUN) Creatinine (test 1.0 mg/dl 0.5-1.3 code = CREA) EGFR if >60 [place] (test code mL/min/1.73m\\ = EGFRAA) S\\2 EGFR if Non- >60 Estimate d Glomerular [place] (test code mL/min/1.73m\\ Filtrat ion Rate (eGFR) = EGFRNA) S\\2 Reference Inter vals Decision Points for 18 years and older and average body ma ss: >= 60 Does not exc lude kidney disease. 30 - 59 Suggests modera te chronic kidney disease and indicat es the need for furthe r investigation including asses sment of proteinuria and cardiovascular factors. < 30 Usually in dicates a need for refe rral for assessment and management of c hronic kidney failure. CBC (HEMOGRAM ONLY)2019-02-08 07:24:00 Test Item Value Reference Range Interpretation Comments WBC (test code = 9.10 10\\S\\3/ul 4.80-10.80 WBC) RBC (test code = 4.11 10\\S\\6/ul 4.70-6.10 L RBC) Hemoglobin (test 12.4 gm/dl 14.0-18.0 L code = HGB) Hematocrit (test 36.7 % 42.0-50.0 L code = HCT) MCV (test code = 89.3 fL 80.0-94.0 MCV) MCH (test code = 30.2 pg 27.0-31.0 MCH) MCHC (test code = 33.8 gm/dl 33.0-37.0 MCHC) RDW (test code = 13.4 % 11.5-14.5 RDWVC) Platelet (test code 234 10\\S\\3/ul 130-400 = PLT) MPV (test code = 10.5 fL 7.4-10.4 A "NOT MEASUR ED" MPV) RESULTS ARE DIS PLAYED WHEN THE INSTRU MENT HAS A SUPPRESSE D OR UNREPORTABLE RE SULT. THIS WILL MOST OFTEN HAPPEN WITH THE MPV WHEN THERE IS A N ABNORMAL PLATEL ET DISTRIBUTION DU E TO A CRITICAL LOW VA LUE OR PLATELET CLUMPI NG. THE RDW MAY BE SUPPRESSED IF T HERE ARE MULTIPLE PE AKS PRESENT ON THE RBC HISTOGRAM. IN THIS CASE, A MANUAL REVIEW OF THE SLIDE WI LL BE PERFORMED, AND RBC MORPHOLOGY WILL BE NOTED ON THE RE PORT. HEMOGRAM ONLYUS ANKLE BRACHIAL [id number] 17:23:10Procedures: US ANKLE BRACHIAL INDEXExam Date: 02/07/2019 10:53 AMOrdering Physician: DR REILLY THAO FORSClinical Indication: [id number]: Peripheral vascular disease (disorder)Comparison: None available.Findings/Impression: Ankle-brachial indices: Right 0.83; left 1.1This final report was electronically signed by Dr Omi Cary MD02/07/2019 5:16 PMDictated By: OMI REDDYDate: 02/07/2019 17:16US VEINS BILAT LEGS [id number] 16:29:10edemaProcedures: US VEINS BILAT LEGS DopplerExam Date: 02/07/2019 10:52 AMOrdering Physician: DR MCCARTHYFORSClinical Indication: [id number]: Deep venous thrombosisComparison: None available.Technique: Real time ultrasound was utilized for evaluation of the deep veinsof the lower extremities from the common femoral vein through the poplitealtrifurcation. Color Doppler and pulse Doppler analysis was performed, includingB-mode/grayscale imaging, Doppler spectral analysis and color flow analysis.Real time visualization of the deep veins was accomplished. Graded compressionof the deep veins of the thighs with the ultrasound transducer was alsoattempted.Findings: The deep veins of the legs demonstrated no abnormal intraluminalsignal. The pulse Doppler and color Doppler flow patterns demonstrated normalvenous flow with respiratory variation. There was increased flow with distalaugmentation maneuvers. Utilizing graded transducer compression, the deep veinsof the thighs were freely compressible.IMPRESSION: No findings to suggest intraluminal clot or obstruction of the deepveins of either leg.Thisfinal report was electronically signed by Dr Omi Cary MD02/07/2019 4:22 PMDictated By: OMI REDDYDate: 02/07/2019 16:[id number] 07:07:00 Test Item Value Reference Range Interpretation Comments Sodium (test code = 146 mmol/l 137-145 H NA) Potassium (test 3.6 mmol/l 3.5-5.1 code = K) Chloride (test code 108 mmol/l 98-107 H = CL) Calcium (test code 8.0 mg/dl 8.5-10.1 L = CALC) CO2 (test code = 29 mmol/l 21-32 CO2) Glucose (test code 93 mg/dl 74-106 = GLU) BUN (test code = 16.0 mg/dl 7.0-18.0 BUN) Creatinine (test 1.2 mg/dl 0.5-1.3 code = CREA) T Protein (test 6.7 gm/dl 6.4-8.2 code = TP) Albumin (test code 3.1 gm/dl 3.4-5.0 L = ALB) A/G Ratio (test 0.9 % 1.1-2.2 L code = AGRAT) AST (SGOT) (test 23 U/L 15-37 code = AST) ALT (SGPT) (test 26 U/L 13-61 code = ALT) Alkaline Phos (test 82 U/L 45-117 code = ALKP) Total Bilirubin 0.7 mg/dl 0.2-1.0 (test code = TBIL) Globulin (test code 3.6 gm/dl 2.3-3.5 H = GLOBU) Calcium, Corrected 8.7 mg/dl 8.4-10.2 Various f ormulas exist (test code = for corrected s mauri CALCCORR) calcium results , each yielding differ ent values. This corrected resul t was based on the fo rmula: Corrected Calci um = SerumCalcium + [0.8 * ( 4 - SerumAlbu min)] EGFR if >60 [place] (test code mL/min/1.73m\\ = EGFRAA) S\\2 EGFR if Non- >60 Estimate d Glomerular [place] (test code mL/min/1.73m\\ Filtrat ion Rate (eGFR) = EGFRNA) S\\2 Reference Inter vals Decision Points for 18 years and older and average body ma ss: >= 60 Does not exc lude kidney disease. 30 - 59 Suggests modera te chronic kidney disease and indicat es the need for furthe r investigation including asses sment of proteinuria and cardiovascular factors. < 30 Usually in dicates a need for refe rral for assessment and management of c hronic kidney failure. CBC WITH MANUAL [id number] 06:45:00 Test Item Value Reference Range Interpretation Comments WBC (test code = 11.03 10\\S\\3/ul 4.80-10.80 H WBC) RBC (test code = 4.18 10\\S\\6/ul 4.70-6.10 L RBC) Hemoglobin (test 12.5 gm/dl 14.0-18.0 L code = HGB) Hematocrit (test 38.7 % 42.0-50.0 L code = HCT) MCV (test code = 92.6 fL 80.0-94.0 MCV) MCH (test code = 29.9 pg 27.0-31.0 MCH) MCHC (test code = 32.3 gm/dl 33.0-37.0 L MCHC) RDW (test code = 13.6 % 11.5-14.5 RDWVC) Platelet (test code 267 10\\S\\3/ul 130-400 = PLT) MPV (test code = 10.9 fL 7.4-10.4 A "NOT MEASUR ED" MPV) RESULTS ARE DISPLAYED WHEN THE INSTRUMENT HAS A SUPPRESSED OR UNREPORTABLE RESULT. THIS W ILL MOST OFTEN HAPP EN WITH THE MPV WH EN THERE IS AN ABNORMAL PLATEL ET DISTRIBUTION DU E TO A CRITICAL LOW VALUE OR PLATEL ET CLUMPING. THE RDW MAY BE SUPPRESS ED IF THERE ARE MULTIPLE PEAKS PRESENT ON THE RBC HISTOGRAM. IN THIS CASE, A MANUAL REVIEW OF THE S LIDE WILL BE PERFORM ED, AND RBC MORPHOL OGY WILL BE NOTED O N THE REPORT. Neutrophils (test 60 10\\S\\3/ul 42-75 code = NEUTR) Lymphocytes (test 26 % 13-42 code = LYMPH) Monocytes (test 9 % 4-14 code = MONOS) Eosinophils (test 3 % 1-3 code = EOS) Basophils (test 2 % 0-1 H code = BASO) RBC Morphology Anisocytosis (test code = RBCMOR) XR CHEST AP/PA 1 [id number] 18:49:30Procedures: XR CHEST AP/PA 1 VIEWExam Date: 02/06/2019 2:58 PMOrdering Physician: DR REILLY HTAOFORSClinical Indication: : Unspecified fallComparison: None available.Findings:Technique: Single frontal portable radiograph of the chest.Medical devices: Median sternotomy wires are present. EKG leads and wiresoverlie the thorax.Pneumothorax: No pneumothorax.Lungs: Marked asymmetric elevation of the right diaphragm versus the left.Increased attenuation of the lung bases likely represents atelectasis, rightgreater than left. No acute radiographic abnormalities of the pulmonaryparenchyma. No focal consolidation.Effusion: None.Aorta: No significant abnormality.Heart: No acute radiographic abnormalities.Bones: Degenerative changes of the shoulders and spine.Upper abdomen: Limited evaluation is without significant abnormality.Impression:Marked asymmetric elevation of the right diaphragm versus the left. Increasedattenuation of the lung bases likely represents atelectasis, right greater thanleft. No acute radiographic abnormalities of the pulmonary parenchyma. No focalconsolidation.No evident fractures.This final report was electronically signed by Dr Omi Cary MD02/06/20196:43 PMDictated By: OMI REDDYDate: 02/06/2019 18:43STAT LAB URINALYSIS WITHOUT [id number] 17:11:00 Test Item Value Reference Range Interpretation Comments Color (test code = UCOLR) Yellow Lt. Yellow A Clarity (test code = UCLAR) Clear Glucose (test code = UGLUC) Negative Negative N Bilirubin (test code = UBILI) Negative Negative N Ketones (test code = UKET) Negative Negative N Specific [place] (test code = USPGR) 1.010 1.005-1.030 A Blood (test code = UBLD) Negative Negative N PH (test code = UPH) 5.5 4.5-8.0 A Protein (test code = UPROT) Negative Negative N Urobilinogen (test code = U UROB) 0.2 >0.2 N Nitrite (test code = UNITR) Negative Negative N Leukocyte Esterase (test code = Negative Negative N ULEUK) er4TSH (Ultra Sensitive)2019-02-06 15:17:00 Test Item Value Reference Range Interpretation Comments TSH (test code = TSH) 1.52 mIU/L 0.35-3.74 [id number] FUNCTION PANEL (LIVER)2019-02-06 15:17:00 Test Item Value Reference Range Interpretation Comments T Protein (test code = TP) 7.4 gm/dl 6.4-8.2 Albumin (test code = ALB) 3.5 gm/dl 3.4-5.0 AST (SGOT) (test code = AST) 29 U/L 15-37 ALT (SGPT) (test code = ALT) 31 U/L 13-61 Alkaline Phos (test code = ALKP) 90 U/L 45-117 Total Bilirubin (test code = TBIL) 0.7 mg/dl 0.2-1.0 Direct Bilirubin (test code = DBIL) 0.3 mg/dl 0.0-0.3 Indirect Bilirubin (test code = 0.4 mg/dl 0.0-1.1 IBIL) [id number] 15:17:00 Test Item Value Reference Range Interpretation Comments Magnesium (test code = MG) 2.2 mg/dl 1.6-2.6 [id number] LAB [id number] 14:12:00 Test Item Value Reference Range Interpretation Comments B-Peptide (test code = BNP) 174 pg/ml 0-100 H [id number] LAB [id number] [id number] 13:51:00 Test Item Value Reference Range Interpretation Comments Sodium (test code = NA) 141 mmol/l 138-146 Potassium (test code = K) 4.1 mmol/l 3.5-4.9 Chloride (test code = CL) 104 mmol/l 98-109 IONIZED CALCIUM (test code = ICA) 1.08 1.12-1.32 A CO2 (test code = CO2) 27 mmol/l 24-29 Glucose (test code = GLU) 104 mg/dl 70-105 BUN (test code = BUN) 22 mg/dl 6-17 H Creatinine (test code = CREA) 1.0 mg/dl 0.6-1.3 [id number] LAB LACTIC [id number] 13:49:00 Test Item Value Reference Range Interpretation Comments LACTATE (test code = LAC) 0.98 mmol/l 0.90-1.70 [id number] LAB CBC WITH AUTO [id number] 13:48:00 Test Item Value Reference Range Interpretation Comments WBC (test code = WBC) 8.30 10\\S\\3/ul 4.80-10.80 RBC (test code = RBC) 4.67 10\\S\\6/ul 4.70-6.10 L Hemoglobin (test code = HGB) 13.9 gm/dl 14.0-18.0 L Hematocrit (test code = HCT) 42.3 % 42.0-50.0 MCV (test code = MCV) 90.6 fL 80.0-94.0 MCH (test code = MCH) 29.8 pg 27.0-31.0 MCHC (test code = MCHC) 32.9 gm/dl 33.0-37.0 L Platelet (test code = PLT) 278 10\\S\\3/ul 130-400 RDW (test code = RDWVC) 13.1 % 11.5-14.5 MPV (test code = MPV) 10.2 fL 7.4-10.4 A NE% (test code = NE) 67.1 % 42.0-75.0 LY% (test code = LY) 17.5 % 13.0-42.0 MO% (test code = MO) 8.6 % 4.0-14.0 EO% (test code = EO) 6.1 % 1.0-3.0 H BA% (test code = BA) 0.5 % 1.0-3.0 L IG% (test code = IG%) 0.2 % 0.0-0.4 er4
[2021-10-11 16:11] LABS: Absolute Lymphocytes (CBC) 1.4 K/uL (0.7-4.9); Hematocrit 32.7 % (39.6-49.0); Lymphocytes % 15.9 % (15.3-44.8); MPV 8.3 fL (7.6-11.3); RBC Red Blood Cell Count 3.55 M/uL (4.33-5.43)
[2021-10-11 16:16] LABS: Albumin 3.6 g/dL (3.4-5.0); Bilirubin Total 0.8 mg/dL (0.2-1.0); Potassium 3.9 mmol/L (3.5-5.1); Protein, Total 7.8 g/dL (6.4-8.2)
[2021-10-11 16:34] LABS: Troponin High Sensitivity 125.2 pg/mL (<58.9)
--- NOTE | 2021-10-11 17:31 | RAD REPORT ---
EXAM DESCRIPTION: US - Extrem Venous W Compress Omid - 10/11/2021 5:20 pm CLINICAL HISTORY: PAIN COMPARISON: No comparisons TECHNIQUE: Real-time sonographic evaluation of the lower extremity deep venous systems was performed using color Doppler, grayscale, and compression. FINDINGS: Bilateral lower extremities. Normal compressibility, flow augmentation, phasic flow and spontaneous flow is identified in both the left and right lower extremity deep venous systems. No intraluminal filling defects seen. Note that the posterior tibial vein was not visualized. IMPRESSION: No DVT in either lower extremity.
--- NOTE | 2021-10-11 17:55 | RAD REPORT ---
EXAM DESCRIPTION: RAD - Chest Single View - 10/11/2021 5:48 pm CLINICAL HISTORY: SWELLING COMPARISON: Chest Single View dated 02/21/2021 FINDINGS: Lines: None. Lungs: No evidence of edema or pneumonia. Similar elevated right hemidiaphragm. Pleural: No significant pleural effusions or pneumothorax. Cardiac: The heart size is within normal limits. Bones: No acute fractures. Sternotomy. Other: Colonic interposed to the liver in the right upper quadrant. IMPRESSION: No acute cardiopulmonary disease.
--- NOTE | 2021-10-11 19:00 | ER ---
Nurse's Notes [facility] Name: Dudley Simmons Age: 89 yrs Sex: Male : 1930 Arrival Date: 10/11/2021 Time: 15:07 Bed 17 Private MD: Diagnosis: Lymphedema, not elsewhere classified;Heart failure, unspecified Presentation: 10/11 15:08 Chief complaint: EMS states: CHRONIC LYMPHEDEMA IS OPEN AND WEEPING. Coronavirus bp screen: At this time, the client does not indicate any symptoms associated with coronavirus-19. Ebola Screen: No symptoms or risks identified at this time. Initial Sepsis Screen: Does the patient meet any 2 criteria? No. Patient's initial sepsis screen is negative. Does the patient have a suspected source of infection? No. Patient's initial sepsis screen is negative. Risk Assessment: Do you want to hurt yourself or someone else? Patient reports no desire to harm self or others. Onset of symptoms is unknown. 15:08 Method Of Arrival: EMS: [facility] bp 15:08 Acuity: JED 3 bp Triage Assessment: 15:08 General: Appears in no apparent distress. comfortable, Behavior is appropriate for age. bp Pain: Complains of pain in right leg and left leg. EENT: No deficits noted. Neuro: No deficits noted. Cardiovascular: No deficits noted. Respiratory: No deficits noted. GI: No signs and/or symptoms were reported involving the gastrointestinal system. : No signs and/or symptoms were reported regarding the genitourinary system. Derm: Reports WEEPING VESICLES ON BLE. Musculoskeletal: Circulation, motion, and sensation intact. Historical: - Allergies: 15:14 No Known Allergies; bp - Home Meds: 15:14 aspirin 81 mg Oral TbEC 1 tab once daily [Active]; atorvastatin 80 mg Oral tab 1 tab bp once daily [Active]; Zanaflex 4 mg Oral cap [Active]; furosemide 40 mg Oral tab 1 tab once daily [Active]; carvedilol 25 mg Oral tab 1 tab 2 times per day [Active]; ezetimibe 10 mg Oral tab 1 tab once daily [Active]; - PMHx: 15:14 Atrial fibrillation; CHF; High Cholesterol; Hypertensive disorder; bp - Immunization history:: Adult Immunizations up to date. - Social history:: Smoking status: Patient denies any tobacco usage or history of. Screenin:14 Abuse screen: Denies threats or abuse. Denies injuries from another. Nutritional bp screening: No deficits noted. Tuberculosis screening: No symptoms or risk factors identified. Fall Risk None identified. Assessment: 15:08 General: SEE TRIAGE NOTE. bp 16:42 Reassessment: U/S AT B/S. bp 18:00 Reassessment: No changes from previously documented assessment. Patient and/or family bp updated on plan of care and expected duration. Pain level reassessed. TROP ELEVATED. EKG PENDING. 18:54 Reassessment: No changes from previously documented assessment. Patient and/or family bp updated on plan of care and expected duration. Pain level reassessed. 19:10 Reassessment: Patient appears in no apparent distress at this time. Patient and/or jb4 family updated on plan of care and expected duration. Pain level reassessed. Patient is alert, oriented x 3, equal unlabored respirations, skin warm/dry/pink. 20:43 Reassessment: Patient appears in no apparent distress at this time. Patient and/or jb4 family updated on plan of care and expected duration. Pain level reassessed. Patient is alert, oriented x 3, equal unlabored respirations, skin warm/dry/pink. 22:08 Reassessment: Patient appears in no apparent distress at this time. Patient and/or jb4 family updated on plan of care and expected duration. Pain level reassessed. Patient is alert, oriented x 3, equal unlabored respirations, skin warm/dry/pink. Vital Signs: 15:08 BP 145 / 71; Pulse 81; Resp 16; Temp 97.9; Pulse Ox 96% ; bp 16:42 BP 144 / 76; Pulse 74; Resp 16; Pulse Ox 97% ; bp 18:00 BP 149 / 78; Pulse 85; Resp 16; Pulse Ox 98% ; bp 18:54 BP 159 / 76; Pulse 93; Resp 18; Pulse Ox 96% ; bp 20:30 BP 144 / 78; Pulse 101; Resp 18; Pulse Ox 97% on R/A; jb4 22:08 BP 121 / 65; Pulse 89; Resp 16; Pulse Ox 94% on R/A; jb4 ED Course: 15:07 Patient arrived in ED. bd 15:08 Juan Pablo Lanier, RN is Primary Nurse. bp 15:08 Arm band placed on. bp 15:11 Triage completed. bp 15:14 Patient has correct armband on for positive identification. Bed in low position. Call bp light in reach. Side rails up X2. 15:17 Nya Ly F[facility]. jh7 15:17 Ashwin Villalobos MD is Attending Physician. jh7 15:45 Inserted saline lock: 20 gauge in right forearm, using aseptic technique. Blood bp collected. 17:21 Extrem Venous W Compression Omid US In Process Unspecified. EDMS 17:48 Chest Single View In Process Unspecified. EDMS 18:57 Dre Diaz is Hospitalizing Provider. jh7 21:11 SARS-COV-2 RT PCR (Document "Date of Onset" if Symptomatic) Sent. tw5 22:08 No provider procedures requiring assistance completed. Patient admitted, IV remains in jb4 place. Administered Medications: 20:12 Drug: carvedilol 25 mg Route: PO; jb4 22:07 Follow up: Response: No adverse reaction jb4 20:13 Drug: Lasix (furosemide) 40 mg Route: IVP; Site: right forearm; jb4 22:07 Follow up: Response: No adverse reaction jb4 Outcome: 19:00 Decision to Hospitalize by Provider. jh7 22:08 Admitted to Med/surg accompanied by tech, via stretcher, room 220, with chart. jb4 22:08 Condition: stable 22:08 Discharge instructions given to patient, Instructed on the need for admit, Demonstrated understanding of instructions. 22:09 Patient left the ED. jb4 Signatures: Dispatcher [employer] EDMS Cher Stewart James, RN RN jb4 Juan Pablo Lanier RN RN bp Wood, Tiffany tw5 Nya Ly FNP FNP 7 Corrections: (The following items were deleted from the chart) 20:13 20:13 Lasix (furosemide) 40 mg IVP in right antecubital jb4 jb4
--- NOTE | 2021-10-11 19:01 | EDPHYS ---
Physician Documentation [facility] Name: Dudley Simmons Age: 89 yrs Sex: Male : 1930 Arrival Date: 10/11/2021 Time: 15:07 Bed 17 Private MD: KRYSTIAN Physician Ashwin Villalobos HPI: 10/11 17:20 This 89 yrs old Male presents to ER via EMS with complaints of Leg Swelling. jh7 17:20 89-year-old male presents from [facility] for increased swelling and jh7 drainage from both legs. The patient lives at [facility], and stated that wound care stopped seeing him 2 weeks ago due to loss of insurance. States that he is kept his legs wrapped, but that the swelling has increased. Also complains of pain and increased weeping from legs. He has a history of CHF and lymphedema. Denies chest pain, shortness of breath, or any other symptoms.. Historical: - Allergies: 15:14 No Known Allergies; bp - Home Meds: 15:14 aspirin 81 mg Oral TbEC 1 tab once daily [Active]; atorvastatin 80 mg Oral tab 1 tab bp once daily [Active]; Zanaflex 4 mg Oral cap [Active]; furosemide 40 mg Oral tab 1 tab once daily [Active]; carvedilol 25 mg Oral tab 1 tab 2 times per day [Active]; ezetimibe 10 mg Oral tab 1 tab once daily [Active]; - PMHx: 15:14 Atrial fibrillation; CHF; High Cholesterol; Hypertensive disorder; bp - Immunization history:: Adult Immunizations up to date. - Social history:: Smoking status: Patient denies any tobacco usage or history of. ROS: 19:47 Constitutional: Negative for fever, chills, and weight loss, Respiratory: Negative for jh7 shortness of breath, cough, wheezing, and pleuritic chest pain. 19:47 Abdomen/GI: Negative for abdominal pain, nausea, vomiting, diarrhea, and constipation, Back: Negative for injury and pain, Neuro: Negative for headache, weakness, numbness, tingling, and seizure. 19:47 Cardiovascular: Positive for edema, Negative for chest pain, palpitations. 19:47 MS/extremity: Positive for pain, swelling, of the right leg and left leg. 19:47 Skin: Positive for drainage. 19:47 All other systems are negative. Exam: 16:00 Skin: Lymphedema in bilateral lower extremities with edema spreading to the bilateral jh7 feet. Unable to palpate pedal pulses secondary to swelling. Multiple excoriated wounds on lower legs with no active bleeding, drainage, or signs of infection. Skin is warm and excessively dry.. 16:00 Constitutional: This is a well developed, well nourished patient who is awake, alert, jh7 and in no acute distress. Head/Face: Normocephalic, atraumatic. Neck: Trachea midline, no thyromegaly or masses palpated, and no cervical lymphadenopathy. Supple, full range of motion without nuchal rigidity, or vertebral point tenderness. No Meningismus. Cardiovascular: Regular rate and rhythm with a normal S1 and S2. No gallops, murmurs, or rubs. Respiratory: Lungs have equal breath sounds bilaterally, clear to auscultation and percussion. No rales, rhonchi or wheezes noted. No increased work of breathing, no retractions or nasal flaring. MS/ Extremity: Sensation and motor function intact. Full, normal range of motion. 16:00 Abdomen/GI: Soft, non-tender, with normal bowel sounds. No distension or tympany. No guarding or rebound. No evidence of tenderness throughout. Back: No spinal tenderness. No costovertebral tenderness. Full range of motion. Vital Signs: 15:08 BP 145 / 71; Pulse 81; Resp 16; Temp 97.9; Pulse Ox 96% ; bp 16:42 BP 144 / 76; Pulse 74; Resp 16; Pulse Ox 97% ; bp 18:00 BP 149 / 78; Pulse 85; Resp 16; Pulse Ox 98% ; bp 18:54 BP 159 / 76; Pulse 93; Resp 18; Pulse Ox 96% ; bp 20:30 BP 144 / 78; Pulse 101; Resp 18; Pulse Ox 97% on R/A; jb4 22:08 BP 121 / 65; Pulse 89; Resp 16; Pulse Ox 94% on R/A; jb4 MDM: 15:18 Patient medically screened. [facility] 16:00 Differential diagnosis: CHF, Lymph edema. Data reviewed: vital signs, nurses notes, lab [facility] test result(s), EKG, radiologic studies, doppler, plain films. Data interpreted: Pulse oximetry: is 96 %. Interpretation: normal. Counseling: I had a detailed discussion with the patient and/or guardian regarding: the historical points, exam findings, and any diagnostic results supporting the discharge/admit diagnosis, lab results, radiology results, the need for further work-up and treatment in the hospital. Physician consultation: Dre Daiz. ED course: The patient remained stable throughout his ER visit. He is unsure who his PCP is, because he said he is scheduled to see a new one soon. Discussed the patient's lab findings (significantly elevated Troponin and BNP) and radiology with RENU Oreilly. The patient will be admitted inpatient. The patient understood the plan of care and is currently awaiting bed assignment.. 10/11 15:34 Order name: CMP; Complete Time: 16:38 [facility] 10/11 15:34 Order name: CBC with Diff; Complete Time: 16:33 [facility] 10/11 15:34 Order name: PROBNP; Complete Time: 16:38 [facility] 10/11 15:34 Order name: Troponin HS; Complete Time: 16:38 [facility] 10/11 15:34 Order name: Extrem Venous W Compression Omid US; Complete Time: 17:43 [facility] 10/11 19:22 Order name: SARS-COV-2 RT PCR (Document "Date of Onset" if Symptomatic) [facility] 10/11 16:45 Order name: EKG - Nurse/Tech; Complete Time: 18:35 [facility] 10/11 17:48 Order name: Chest Single View; Complete Time: 18:25 EDMS EC:02 Rate is 101 beats/min. Rhythm is irregular. QRS [place] is Normal. No ST changes noted. [facility] Clinical impression: Atrial Fibrillation. Administered Medications: 20:12 Drug: carvedilol 25 mg Route: PO; jb4 22:07 Follow up: Response: No adverse reaction jb4 20:13 Drug: Lasix (furosemide) 40 mg Route: IVP; Site: right forearm; jb4 22:07 Follow up: Response: No adverse reaction [facility] Disposition Summary: 10/11/21 19:00 Hospitalization Ordered Hospitalization Status: Inpatient Admission [facility] Provider: Dre Diaz [facility] Location: Telemetry/MedSur (Inpatient) [facility] Condition: Stable [facility] Problem: an ongoing problem [facility] Symptoms: have worsened [facility] Bed/Room Type: Standard [facility] Room Assignment: 220(10/11/21 21:40) vicki Diagnosis - Lymphedema, not elsewhere classified jh7 - Heart failure, unspecified [facility] Forms: - Medication Reconciliation Form 7 - SBAR form [facility] Signatures: Dispatcher [employer] EDMS Nela Lowery RN RN Kervin Pandya RN RN jb4 Juan Pablo Lanier, RN RN Yenny Pratt, PA PA sb3 Nya Ly, SOFTWARE ASSET MANAGER SOFTWARE ASSET MANAGER [facility] Corrections: (The following items were deleted from the chart) 17:48 16:45 Chest Pa And Lat (2 Views)+[id number].[email or web address] ordered. EDAR EDMS 21:40 19:00 Yaya cohen
[2021-10-11] MEDS ORDERED: FUROSEMIDE 40 MG/4 ML VIAL ONE (20:01)
[2021-10-11] MEDS ORDERED: carvediloL 6.25 MG TAB ONE (20:03)
--- NOTE | 2021-10-11 22:15 | P.HP ---
Certification for Inpatient Patient admitted to: Observation With expected LOS: <2 Midnights Patient will require the following post-hospital care: None Practitioner: I am a practitioner with admitting privileges, knowledge of patient current condition, hospital course, and medical plan of care. Services: Services provided to patient in accordance with Admission requirements found in Title 42 Section 412.3 of the Code of Federal Regulations Patient History Date of Service: 10/11/21 Primary Care Provider: [place] Reason for admission: CHF, Lymphadema, Elevated Troponin History of Present Illness: Patient is an 89-year-old male with CHF (unknown EF), chronic A. fib, hypertension, and lymphedema who presented to the ED with complaints of increasing swelling and weeping of his bilateral lower extremities secondary to lymphadema. He typically gets wound care but has not had it in 2 weeks because his insurance stopped covering it. Work-up revealed a BNP of 1658, troponin 125, EKG showed A. fib. CXR and venous ultrasound negative. Patient is not complaining of chest pain, only discomfort in his legs. Will admit patient for observation. Allergies No Known Allergies Allergy (Unverified 02/22/21 00:57) Home medications list reviewed: Yes Home Medications: Acetaminophen [Acetaminophen Extra Strength] 1,000 mg PO BID PRN 02/22/21 Aspirin [Aspirin EC] 81 mg PO DAILY 02/22/21 Atorvastatin Calcium [Lipitor] 80 mg PO BEDTIME 02/22/21 Carvedilol [Coreg] 25 mg PO BID 02/22/21 Docusate Sodium [Dok] 100 mg PO DAILY PRN 02/22/21 Ezetimibe 10 mg PO DAILY 02/22/21 Furosemide 40 mg PO DAILY 02/22/21 Magnesium Hydroxide [Milk of Magnesia] 30 ml PO DAILY PRN 02/22/21 Potassium Chloride 20 meq PO DAILY 02/22/21 Triamcinolone 0.1% Oint [Kenalog 0.1% Ointment*] 1 applic TOP DAILY 02/22/21 - Past Medical/Surgical History Diabetic: No -: CHFunknown EF -: Atrial fibrillation unknown anticoagulation -: Hyperlipidemia -: Hypertension -: Hernia repair -: CABG three-vessel 2007 -: Cholecystectomy Psychosocial/ Personal History: Patient is a resident at assisted living facility - Family History Father -: Lung disease - Social History Smoking Status: Former smoker Alcohol use: No CD- Drugs: No Caffeine use: Yes Place of Residence: Home Review of Systems 10-point ROS is otherwise unremarkable Musculoskeletal: Leg Pain, As per HPI Physical Examination - Physical Exam General: Alert, In no apparent distress, Oriented x3 HEENT: Atraumatic, PERRLA, Mucous membr. moist/pink, EOMI, Sclerae nonicteric Neck: Supple, 2+ carotid pulse no bruit, No LAD, Without JVD or thyroid abnormality Respiratory: Clear to auscultation bilaterally, Normal air movement Cardiovascular: Edema (2+ pitting edema), Irregular heart rate/rhythm (afib, tachy) Gastrointestinal: Normal bowel sounds, Soft and benign, No tenderness Musculoskeletal: No tenderness Integumentary: No cyanosis, Skin breakdown (BLE- lymphadema, weeping ) Neurological: Normal speech, Normal strength at 5/5 x4 extr, Normal tone, Sensation intact, Normal affect - Studies Laboratory Data (last 24 hrs) 10/11/21 15:45: WBC 9.1, Hgb 11.0 L, Hct 32.7 L, Plt Count 234 10/11/21 15:45: Sodium 141, Potassium 3.9, BUN 24 H, Creatinine 1.20, Glucose 131 H, Total Bilirubin 0.8, AST 26, ALT 32, Alkaline Phosphatase 100 Assessment and Plan - Problems (Diagnosis) (1) CHF (congestive heart failure) Current Visit: Yes Status: Acute Qualifiers: Heart failure type: unspecified Heart failure chronicity: acute on chronic Qualified Code(s): I50.9 - Heart failure, unspecified (2) Acquired lymphedema of leg Current Visit: Yes Status: Chronic (3) Elevated troponin Current Visit: Yes Status: Acute (4) Afib Current Visit: Yes Status: Chronic Qualifiers: Atrial fibrillation type: unspecified chronic Qualified Code(s): I48.20 - Chronic atrial fibrillation, unspecified; I48.2 - Chronic atrial fibrillation (5) Hypertension Current Visit: Yes Status: Chronic Qualifiers: Hypertension type: primary hypertension Qualified Code(s): I10 - Essential (primary) hypertension - Plan -Initial troponin elevated at 125. trend q6hx2 and check CPK and CK-MB. Patient denies chest pain. EKG negative for ST changes -Patient has chronic CHF but EF is unknown. He does take Lasix on a daily basis. Chest x-ray did not show signs of fluid overload but patient does have 2+ pitting edema in lower extremities bilaterally. continue Lasix IV -Cardiology consulted and echo ordered -Wound care ordered -Reconcile and continue home medications -Lovenox for VTE prophylaxis. Patient does not take a blood thinner for his chronic A. fib Discharge Plan: Home Plan to discharge in: 24 Hours - Advance Directives Does patient have a Living Will: No Does patient have a Durable POA for Healthcare: No - Code Status/Comfort Care Code Status Assessed: Yes (Full) Critical Care: No Time Spent Managing Pts Care (In Minutes): 70
[2021-10-11] MEDS ORDERED: ONDANSETRON 4 MG/2 ML VIAL IV PRN (22:45)
[2021-10-11] MEDS ORDERED: ACETAMINOPHEN 500 MG TAB PO PRN (22:45)
[2021-10-11 22:55] VITALS: O2SAT 94
[2021-10-11 23:18] LABS: Creatine Phosphokinase 70 U/L (39-308)
[2021-10-11 23:19] LABS: CKMB Creatine Kinase MB < 1.0 ng/mL (1.0-3.6)
[2021-10-11 23:20] VITALS: BMI 25.9
[2021-10-11 23:20] LABS: Troponin High Sensitivity 131.4 pg/mL (<58.9)
[2021-10-12] MEDS ORDERED: ENOXAPARIN 80 MG/0.8 ML SQ ONE (05:35)
[2021-10-12 06:08] LABS: Hematocrit 32.5 % (39.6-49.0); Lymphocytes % 21.6 % (15.3-44.8); MPV 8.2 fL (7.6-11.3); RBC Red Blood Cell Count 3.52 M/uL (4.33-5.43)
[2021-10-12 06:34] LABS: Magnesium 2.2 mg/dL (1.8-2.4); Phosphorus 3.1 mg/dL (2.5-4.9); Potassium 3.7 mmol/L (3.5-5.1); Thyroid Stimulating Hormone 1.23 uIU/mL (0.360-3.740)
[2021-10-12 06:35] LABS: Troponin High Sensitivity 129.7 pg/mL (<58.9)
[2021-10-12] MEDS ORDERED: ENOXAPARIN 40 MG/0.4 ML SQ SCH (09:00)
[2021-10-12] MEDS ORDERED: FUROSEMIDE 20 MG/ 2ML VIAL IV SCH (09:00)
[2021-10-12 13:01] LABS: Urine Appearance Clear (Clear); Urine Bilirubin Negative (Negative); Urine Blood Trace-intact (Negative); Urine Color Yellow (Yellow); Urine Glucose Negative (Negative); Urine Protein Negative (Negative); Urine Specific Gravity 1.015 (1.005-1.030)
[2021-10-12 13:04] LABS: Urine Microscopic Reflex ORDER UMIC
[2021-10-12] MEDS ORDERED: levoFLOXacin 750 MG TAB PO SCH (13:07)
[2021-10-12 13:17] LABS: Urine Bacteria NONE SEEN /HPF (NONE SEEN); Urine RBC <5 /HPF (NONE SEEN)
--- NOTE | 2021-10-12 14:33 | EKG ---
Test Date: 2021-10-11 Test Time: 19:02:55 Clinical Trials Nurse: BAILEY MEASUREMENT RESULTS: Intervals: Rate: 101 MN: QRSD: 80 QT: 380 QTc: 492 [place]: P: MN: QRS: 99 T: 38 INTERPRETIVE STATEMENTS: Atrial fibrillation with rapid ventricular response Rightward axis Anterior infarct, age undetermined Abnormal ECG Compared to ECG 02/21/2021 18:31:37 Myocardial infarct finding now present Ventricular premature complex(es) no longer present T-wave abnormality no longer present Prolonged QT interval no longer present Electronically Signed On 10-12-21 14:32:17 CDT by Angel Felix
--- NOTE | 2021-10-12 15:25 | P.DS ---
Admission Date: 10/11/21 Discharge Date: 10/12/21 Primary Care Provider: [place] Disposition: DC HOME/HOME HEALTH CARE Discharge Condition: FAIR Reason for Admission: CHF, Lymphadema, Elevated Troponin - Problems (1) Venous stasis ulcer limited to breakdown of skin without varicose veins Current Visit: Yes Status: Acute (2) Elevated troponin Current Visit: Yes Status: Acute (3) Acquired lymphedema of leg Current Visit: Yes Status: Chronic (4) Afib Current Visit: Yes Status: Chronic Qualifiers: Atrial fibrillation type: unspecified chronic Qualified Code(s): I48.20 - Chronic atrial fibrillation, unspecified; I48.2 - Chronic atrial fibrillation (5) Hypertension Current Visit: Yes Status: Chronic Qualifiers: Hypertension type: primary hypertension Qualified Code(s): I10 - Essential (primary) hypertension Brief History of Present Illness: Patient is an 89-year-old male with CHF (unknown EF), chronic A. fib, hypertension, and lymphedema who presented to the ED with complaints of increasing swelling and weeping of his bilateral lower extremities secondary to lymphadema. He typically gets wound care but has not had it in 2 weeks because his insurance stopped covering it. Work-up revealed a BNP of 1658, troponin 125, EKG showed A. fib. CXR and venous ultrasound negative. Patient is not complaining of chest pain, only discomfort in his legs. He was hospitalized for further management Hospital Course: Patient placed on observation on the medical floor. His troponin trended flat. Patient seen by cardiology-Dr. Felix who cleared patient for discharge. Dr. Suarez did recommend starting him on anticoagulation for the A. fib. Patient prescribed low-dose Eliquis. He is also prescribed oral antibiotics for possible venostasis ulcer infection. Vitals are stable, patient deemed stable for discharge. Vital Signs/Physical Exam: Temp Pulse Resp BP Pulse Ox 98.6 F 76 16 127/59 L 96 10/12/21 12:00 10/12/21 12:00 10/12/21 12:00 10/12/21 12:00 10/12/21 12:00 General: Alert, In no apparent distress, Oriented x3 HEENT: Mucous membr. moist/pink Neck: JVD not distended Respiratory: Clear to auscultation bilaterally, Normal air movement Cardiovascular: Normal S1 S2, Edema (1+ bilateral lower extremity edema. Edema significantly improved.), Irregular heart rate/rhythm Gastrointestinal: Normal bowel sounds, Soft and benign, Non-distended, No tenderness Integumentary: Venous stasis ulcer (Lower extremities) Neurological: Normal strength at 5/5 x4 extr Laboratory Data at Discharge: WBC 9.3 K/uL (4.3-10.9) 10/12/21 05:54 Hgb 11.0 g/dL (13.6-17.9) L 10/12/21 05:54 Hct 32.5 % (39.6-49.0) L 10/12/21 05:54 Plt Count 237 K/uL (152-406) 10/12/21 05:54 Sodium 142 mmol/L (136-145) 10/12/21 05:54 Potassium 3.7 mmol/L (3.5-5.1) 10/12/21 05:54 BUN 21 mg/dL (7-18) H 10/12/21 05:54 Creatinine 1.06 mg/dL (0.55-1.3) 10/12/21 05:54 Glucose 88 mg/dL (74-106) 10/12/21 05:54 Phosphorus 3.1 mg/dL (2.5-4.9) 10/12/21 05:54 Magnesium 2.2 mg/dL (1.8-2.4) 10/12/21 05:54 Total Bilirubin 0.8 mg/dL (0.2-1.0) 10/11/21 15:45 AST 26 U/L (15-37) 10/11/21 15:45 ALT 32 U/L (12-78) 10/11/21 15:45 Alkaline Phosphatase 100 U/L (45-117) 10/11/21 15:45 Triglycerides 59 mg/dL (<150) 10/12/21 05:54 Cholesterol 98 mg/dL (<200) 10/12/21 05:54 HDL Cholesterol 54 mg/dL (40-60) 10/12/21 05:54 Cholesterol/HDL Ratio 1.81 10/12/21 05:54 Home Medications: Acetaminophen [Acetaminophen Extra Strength] 1,000 mg PO BID PRN 02/22/21 Aspirin [Aspirin EC] 81 mg PO DAILY 02/22/21 Atorvastatin Calcium [Lipitor] 80 mg PO BEDTIME 02/22/21 Carvedilol [Coreg] 25 mg PO BID 02/22/21 Docusate Sodium [Dok] 100 mg PO DAILY PRN 02/22/21 Ezetimibe 10 mg PO DAILY 02/22/21 Magnesium Hydroxide [Milk of Magnesia] 30 ml PO DAILY PRN 02/22/21 Potassium Chloride 20 meq PO DAILY 02/22/21 Triamcinolone 0.1% Oint [Kenalog 0.1% Ointment*] 1 applic TOP DAILY 02/22/21 Apixaban [Eliquis] 2.5 mg PO BID #60 tablet 10/12/21 Furosemide 40 mg PO DAILY #37 10/12/21 levoFLOXacin [Levaquin*] 750 mg PO DAILY #7 tab 10/12/21 New Medications: Apixaban [Eliquis] 2.5 mg PO BID #60 tablet Furosemide 40 mg PO DAILY #37 levoFLOXacin [Levaquin*] 750 mg PO DAILY #7 tab Diet: AHA Activity: Ad hesham Followup: Rafael Calvo MD [Primary Care Provider] - 1-2 Weeks
[2021-10-12 16:18] VITALS: BP 131/69; TEMP 98.9
--- NOTE | 2021-10-12 16:42 | CON ---
Date of Consultation: 10/12/2021 Reason For Consultation: The patient was admitted on 10/11/[address] Diaz's service with congest torito heart failure and lymphedema. History Of Present Illness: Mr. Simmons is 89, has had a history of paroxysmal atrial fibrillation, c ongestive heart failure, hypertension, dyslipidemia, came in with bilateral lower extremities, leg sw elling, negative venous Doppler, negative chest x-ray. Complained of pedal edema but did not really have any chest pain or nausea, vomiting, or diaphoresis. Denied palpitation or syncope. Denied feve r or chills. Past Medical History: As stated above. Allergies: NONE. Review of Systems: Negative. Social History: Negative. Family History: Noncontributory. Medications: At home includes Zetia, Coreg, aspirin Lasix, magnesium and potassium. Physical Examination: General: He was in atrial fibrillation at a rate of 93. HEENT: Exam is negative. Neck: Supple with no bruit, lymphadenopathy, JVD, or thyromegaly. Chest: Clear to auscultation and percussion. Cardiac: Revealed atrial fibrillation. No murmurs, gallops, or rubs. Abdomen: Benign. Extremities: Revealed bilateral 2+ edema to the knee with scaling and dryness of the skin with some possible erythema and tenderness bilaterally. Impression And Plan: 1.Lymphedema. 2.Possible congestive heart failure, maybe diastolic. 3.Atrial fibrillation that is chronic. 4.Hypertension, well controlled. 5.Dyslipidemia. The patient had a mildly elevated troponin and BNP secondary to congestive heart failure. I think he needs to be diuresed, possibly treated with antibiotics for his lymphedema and may be cellulitis. E chocardiogram is pending. I will discuss the case further with Dr. Diaz. To resume home medicatio n for sure. NB/MODL Voice ID: [id number] Report ID: [id number]
[2021-10-13] MEDS ORDERED: ENOXAPARIN 80 MG/0.8 ML SQ SCH (09:00)
--- NOTE | 2021-10-15 07:09 | ECHO ---
HEIGHT: 5 ft 6 in WEIGHT: 160 lb 12.8 oz DATE OF STUDY: 10/12/[address]: srini salas 2-DIMENSIONAL: YES M.MODE: YES DOPPLER: YES COLOR FLOW: YES TDS: PORTABLE: YES DEFINITY: BUBBLE STUDY: DIAGNOSIS: YES CARDIAC HISTORY: CATHERIZATION: YES SURGERY: YES PROSTHETIC VALVE: NO PACEMAKER: NO MEASUREMENTS (cm) DIASTOLIC (NORMALS) SYSTOLIC (NORMALS) IVSd 1.1 (0.6-1.2) LA Diam 3.5 (1.9-4.0) LVEF 35% LVIDd 3.5 (3.5-5.7) LVIDs 2.9 (2.0-3.5) %FS 16% LVPWd 1.2 (0.6-1.2) Ao Diam 2.8 (2.0-3.7) 2 DIMENSIONAL ASSESSMENT: RIGHT ATRIUM: NORMAL LEFT ATRIUM: NORMAL RIGHT VENTRICLE: NORMAL LEFT VENTRICLE: NORMAL SIZE TRICUSPID VALVE: NORMAL MITRAL VALVE: NORMAL PULMONIC VALVE: NORMAL AORTIC VALVE: SCLEROSIS PERICARDIAL EFFUSION: NONE AORTIC ROOT: NORMAL LEFT VENTRICULAR WALL MOTION: MODERATE GLOBAL HYPOKINESIS DOPPLER/COLOR FLOW: MILD TRICUSPID REGURGITATION. COMMENTS: AORTIC SCLEROSIS. MODERATE GLOBAL HYPOKINESIS. EJECTION FRACTION 35%. MILD TRICUSPID REGURGITATION. NORMAL RIGHT VENTRICULAR SYSTOLIC PRESSURE. TECHNOLOGIST: RANDA MCKOY
== END 2021-10-12 17:00 | disposition home health service (06) ==
LOC: ER 15:00 → INTOOBSV 19:44 → ERHOLD 19:44 → OBSVTOIN 19:44 → 2ND 21:59
PROVIDERS: ADMIT Internal Medicine; ATTEND Internal Medicine
DX: I89.0 Lymphedema, not elsewhere classified (principal); I87.2 Venous insufficiency (chronic) (peripheral); I11.0 Hypertensive heart disease with heart failure; I50.9 Heart failure, unspecified; E78.5 Hyperlipidemia, unspecified; I48.19 Other persistent atrial fibrillation; Z79.82 Long term (current) use of aspirin; Z79.899 Other long term (current) drug therapy; Z95.1 Presence of aortocoronary bypass graft; Z87.891 Personal history of nicotine dependence; Z90.49 Acquired absence of other specified parts of digestive tract; Z20.822 Contact with and (suspected) exposure to COVID-19; Z83.6 Family history of other diseases of the respiratory system
CPT/HCPCS: 93005; 93306; 85025 ×2; 80048; 36415; 83735; 82550; 84100; 80061; 84443; 84484 ×3; 82553; 84439; 80053; 83880; 71045; 93970; 96374; 99285; U0003; J1940 ×2; G0378 ×3; 81003; 81015